=== PATIENT | female | born 1965 | race Caucasian/White ===

== ENCOUNTER 2017-06-21 13:06 | Emergency (ER) | payer MEDICARE ==
[~2017-06-21] VITALS: Ht 162.6 cm; Wt 70.0 kg
[~2017-06-21 13:06] MED LIST: ADVA250A INH; ALBU.5I NEB; BIAX500T PO; BUSP10TA PO; DIFL200T PO; FLUT50SP EACH NARE; IPRASOL INH; MONT10TA2 PO; VENTAER INH
[2017-06-21 13:08] VITALS: BP 185/81; PULSE 127; RESP 18; TEMP 98.1; O2SAT 88
[2017-06-21] MEDS ORDERED: methylPREDNISolone SOD SUCC 125 MG/2 ML VIAL IV PUSH ONE (13:15)
[2017-06-21] MEDS ORDERED: SODIUM CHLORIDE 0.9% FLUSH 10 ML FLUSH IVF PRN (13:15)
--- NOTE | 2017-06-21 13:17 | PD ---
HPI Chief Complaint: Respiratory Distress Time Seen by Provider: 13:09 Travel History International Travel<30 days: No Contact w/Intl Traveler<30days: No Traveled to known affect area: No History of Present Illness HPI 51-year-old female with history of COPD, presents to the ER today for 2 days history of coughing, wheezing, shortness of breath. She denies any fevers or any other issues. However, she states that she thinks she has the flu. She has been using her own inhalers without significant improvement. Modifying Factors: None Associated Signs & Symptoms: Coughing, wheezing, shortness of breath Risk Factors: COPD history PFSH Past Medical History Hx Anticoagulant Therapy: No Arthritis: No Asthma: Yes Autoimmune Disease: No Blood Disorders: No Anxiety: Yes Depression: No Heart Rhythm Problems: No Cancer: No Cardiovascular Problems: Yes High Cholesterol: No Chemotherapy: No Chest Pain: Yes Congestive Heart Failure: No COPD: Yes Cerebrovascular Accident: No Coronary Artery Disease: No Diabetes: No Diminished Hearing: No Endocrine: Yes (hyperthyroid) Gastrointestinal Disorders: No Genitourinary: No Hypertension: Yes Immune Disorder: No Implanted Vascular Access Dvce: No Musculoskeletal: Yes Neurologic: No Psychiatric: Yes (PTSD) Reproductive: Yes (TUBAL LIGATION) Respiratory: Yes (COPD) Immunizations Current: Yes Myocardial Infarction: No Radiation Therapy: No Sleep Apnea: No Thyroid Disease: Yes (HYPERTHYROID) ?: Not Menopausal: Yes : 1 Para: 2 Tubal Ligation: Yes Past Surgical History Abdominal Surgery: Yes ( 1997) Cardiac Surgery: No Section: Yes Ear Surgery: No Endocrine Surgery: No Eye Surgery: No Genitourinary Surgery: No Hysterectomy: No Neurologic Surgery: No Oral Surgery: No Thoracic Surgery: No Other Surgery: Yes (CYST REMOVAL RT BREAST) Social History Alcohol Use: Yes (socially) Tobacco Use: Yes (<1 PPD) Substance Use: No Allergies-Medications (Allergen,Severity, Reaction): Coded Allergies: penicillin G (Unverified Allergy, Severe, RASH, 05/12/17) codeine (Unverified Adverse Reaction, Unknown, NAUSEA, 05/12/17) Reported Meds & Prescriptions Reported Meds & Active Scripts Active Fluticasone Nasal [place] 50 Mcg/Act Naspr 100 Mcg EACH NARE BID 50 mcg/spray Diflucan (Fluconazole) 200 Mg Tab 200 Mg PO DAILY Ventolin Hfa 18 GM Inh (Albuterol Sulfate) 90 Mcg/Act Aer 2 Puff INH Q6H PRN Buspirone (Buspirone HCl) 10 Mg Tab 10 Mg PO BID Duoneb (Ipratropium-Albuterol Neb) 0.5-2.5 Mg/3 Ml Neb 1 Nebule INH Q4HR NEB Advair Diskus Inh (Fluticasone-Salmeterol Inh) 250-50 Mcg/Blist Aer 1 Puff INH BID Rinse mouth after use. Albuterol Neb (Albuterol Sulfate) 2.5 Mg/0.5 Ml Neb 2.5 Mg NEB TID NEB PRN Note: The Albuterol Sulfate Inhalation Solution is concentrated and must be diluted. Read complete instructions carefully before using. Review of Systems Except as stated in HPI: all other systems reviewed are Neg Physical Exam Narrative GENERAL: Well-developed middle age female patient currently in mild respiratory distress. Awake and oriented 3. SKIN: Focused skin assessment warm/dry. HEAD: Atraumatic. Normocephalic. EYES: Pupils equal and round. No scleral icterus. No injection or drainage. ENT: No nasal bleeding or discharge. Mucous membranes pink and moist. NECK: Trachea midline. No JVD. CARDIOVASCULAR: Regular rate and rhythm. No murmur appreciated. RESPIRATORY: Moderate accessory muscle use. Wheezing throughout bilaterally. Breath sounds equal bilaterally. GASTROINTESTINAL: Abdomen soft, non-tender, nondistended. Hepatic and splenic margins not palpable. MUSCULOSKELETAL: No obvious deformities. No clubbing. No cyanosis. No edema. NEUROLOGICAL: Awake and alert. No obvious cranial nerve deficits. Motor grossly within normal limits. Normal speech. PSYCHIATRIC: Appropriate mood and affect; insight and judgment normal. Data Data Last Documented VS Vital Signs Date Time Temp Pulse Resp B/P (MAP) Pulse Ox O2 Delivery O2 Flow Rate FiO2 06/21/17 13:15 129 18 95 Room Air 06/21/17 13:13 2.00 06/21/17 13:08 98.1 185/81 (115) Orders Orders Complete Blood Count With Diff (06/21/17 13:09) Comprehensive Metabolic Panel (06/21/17 13:09) Influenzae A/B Antigen (06/21/17 13:09) Iv Access Insert/Monitor (06/21/17 13:09) Ecg Monitoring (06/21/17 13:09) Oximetry (06/21/17 13:09) Oxygen Administration (06/21/17 13:09) Chest, Single Ap (06/21/17 13:09) Sodium Chloride 0.9% Flush (Ns Flush) (06/21/17 13:15) Methylprednisolone So Succ Inj (Solumedr (06/21/17 13:15) Albuterol-Ipratropium Neb (Duoneb Neb) (06/21/17 13:15) Electrocardiogram (06/21/17 ) Albuterol-Ipratropium Neb (Duoneb Neb) (06/21/17 15:15) Albuterol-Ipratropium Neb (Duoneb Neb) (06/21/17 16:00) Labs Laboratory Tests Test 06/21/17 13:25 White Blood Count 13.7 TH/MM3 Red Blood Count 5.10 MIL/MM3 Hemoglobin 15.0 GM/DL Hematocrit 45.0 % Mean Corpuscular Volume 88.2 FL Mean Corpuscular Hemoglobin 29.3 PG Mean Corpuscular Hemoglobin Concent 33.3 % Red Cell Distribution Width 15.8 % Platelet Count 357 TH/MM3 Mean Platelet Volume 8.3 FL Neutrophils (%) (Auto) 64.8 % Lymphocytes (%) (Auto) 22.0 % Monocytes (%) (Auto) 8.5 % Eosinophils (%) (Auto) 3.1 % Basophils (%) (Auto) 1.6 % Neutrophils # (Auto) 8.9 TH/MM3 Lymphocytes # (Auto) 3.0 TH/MM3 Monocytes # (Auto) 1.2 TH/MM3 Eosinophils # (Auto) 0.4 TH/MM3 Basophils # (Auto) 0.2 TH/MM3 CBC Comment AUTO DIFF Differential Comment AUTO DIFF CONFIRMED Blood Urea Nitrogen 4 MG/DL Creatinine 0.61 MG/DL Random Glucose 154 MG/DL Total Protein 7.5 GM/DL Albumin 3.4 GM/DL Calcium Level 9.5 MG/DL Alkaline Phosphatase 142 U/L Aspartate Amino Transf (AST/SGOT) 25 U/L Alanine Aminotransferase (ALT/SGPT) 31 U/L Total Bilirubin 0.3 MG/DL Sodium Level 136 MEQ/L Potassium Level 3.8 MEQ/L Chloride Level 106 MEQ/L Carbon Dioxide Level 22.3 MEQ/L Anion Gap 8 MEQ/L Estimat Glomerular Filtration Rate 103 ML/MIN [facility] Decision Making Medical Screen Exam Complete: Yes Emergency Medical Condition: Yes Medical Record Reviewed: Yes Interpretation(s) Laboratory Tests Test 06/21/17 13:25 White Blood Count 13.7 TH/MM3 (4.0-11.0) Monocytes (%) (Auto) 8.5 % (0.0-8.0) Neutrophils # (Auto) 8.9 TH/MM3 (1.8-7.7) Monocytes # (Auto) 1.2 TH/MM3 (0-0.9) Blood Urea Nitrogen 4 MG/DL (7-18) Random Glucose 154 MG/DL (74-106) Alkaline Phosphatase 142 U/L (45-117) Last 24 hours Impressions Chest X-Ray 06/21/17 1309 Signed Impressions: Service Date/Time: Wednesday, June 21, 2017 13:54 - CONCLUSION: No acute disease. Adarsh Hutchins MD Differential Diagnosis COPD exacerbation versus bronchitis versus pneumonia Narrative Course Chest x-ray did not show any signs of acute processes. Patient was given Solu- Medrol and several doses of DuoNeb's in the ER with improvement symptoms. At this point, my plan would be to release the patient with follow-up to primary care physician. Return for worsening in symptoms as necessary. The plan has been discussed with her and she states understanding. Diagnosis Primary Impression: COPD with acute exacerbation Med/Other Pt SpecificInfo: Prescription(s) given Scripts Prednisone (Prednisone) 50 Mg Tab 50 MG PO DAILY, #5 TAB 0 Refills Prov: Mahnaz Lipscomb MD 06/21/17 Clarithromycin (Biaxin) 500 Mg Tab 500 MG PO BID for Infection, #14 TAB 0 Refills Prov: Mahnaz Lipscomb MD 06/21/17 Albuterol 18 GM Inh (Ventolin Hfa 18 GM Inh) 90 Mcg/Act Aer 2 PUFF INH Q6H Y for SHORTNESS OF BREATH, #1 INHALER 0 Refills Prov: Mahnaz Lipscomb MD 06/21/17 Disposition: 01 DISCHARGE HOME Condition: Stable Mahnaz Lipscomb MD Jun 21, 2017 13:17
[2017-06-21 13:41] LABS: AUTOMATED NEUTROPHIL # 8.9 TH/MM3 (1.8-7.7); BASOPHIL # 0.2 TH/MM3 (0-0.2); BASOPHIL % 1.6 % (0.0-2.0); EOSINOPHIL # 0.4 TH/MM3 (0-0.4); EOSINOPHIL % 3.1 % (0.0-4.0); MEAN CELL VOLUME 88.2 FL (80.0-100.0); MEAN CORPUSCULAR HEMOGLOBIN 29.3 PG (27.0-34.0); MEAN CORPUSCULAR HGB CONC 33.3 % (32.0-36.0); MONO % 8.5 % (0.0-8.0); NEUT % 64.8 % (16.0-70.0); PLATELET COUNT 357 TH/MM3 (150-450); RED CELL DISTRIBUTION WIDTH 15.8 % (11.6-17.2); WHITE BLOOD COUNT 13.7 TH/MM3 (4.0-11.0)
[2017-06-21 13:47] LABS: HEMO FLAGS AUTO DIFF
[2017-06-21 13:58] LABS: ALT (GPT) 31 U/L (10-53)
[2017-06-21 14:00] LABS: ALKALINE PHOSPHATASE 142 U/L (45-117); TOTAL BILIRUBIN ADULT 0.3 MG/DL (0.2-1.0)
[2017-06-21] MEDS: RESP: ALBUTEROL 2.5 MG/IPRATROPIUM 0.5 MG NEB (SCH) INH ×3 (14:01→16:01)
[2017-06-21 14:03] LABS: ANION GAP 8 MEQ/L (5-15); AST (GOT) 25 U/L (15-37); BICARBONATE 22.3 MEQ/L (21.0-32.0); BLOOD UREA NITROGEN 4 MG/DL (7-18); CHLORIDE 106 MEQ/L (98-107); GLOMERULAR FILTRATION RATE 103 ML/MIN (>89); POTASSIUM 3.8 MEQ/L (3.5-5.1); SODIUM (NA) 136 MEQ/L (136-145)
[2017-06-21 14:17] LABS: SCAN/DIFF AUTO DIFF CONFIRMED
--- NOTE | 2017-06-21 14:19 | RADRPT ---
EXAM DATE/TIME: 06/21/2017 13:54 [facility] COMPARISON: CHEST SINGLE AP, August 22, 2016, 6:20. INDICATIONS : Short of Breath MEDICAL HISTORY : Chronic obstructive pulmonary disease. SURGICAL HISTORY : None. ENCOUNTER: Initial ACUITY: 1 day PAIN SCORE: 0/10 LOCATION: Bilateral chest FINDINGS: A single view of the chest demonstrates the lungs to be symmetrically aerated without evidence of mas s, infiltrate or effusion. The cardiomediastinal contours are unremarkable. Osseous structures are intact. There are multiple overlying electrocardiogram leads and oxygen tubing. CONCLUSION: No acute disease. Adarsh Hutchins MD on June 21, 2017 at 14:18 Board Certified Radiologist. This report was verified electronically.
[2017-06-21] MEDS ORDERED: RESP: ALBUTEROL 2.5 MG/IPRATROPIUM 0.5 MG NEB (SCH) INH ONE (16:00)
[2017-06-21] MEDS ORDERED: PRED50 PO ×2 (16:34→16:47)
[2017-06-21] MEDS ORDERED: BIAX500T PO ×2 (16:34→16:47)
[2017-06-21] MEDS ORDERED: VENTAER INH ×2 (16:34→16:47)
--- NOTE | 2017-06-22 16:10 | EKG ---
Date Performed: 06/21/2017 Time Performed: 13:20:14 PTAGE: 51 years EKG: SINUS TACHYCARDIA WITH RAPID VENTRICULAR RESPONSE. POSSIBLE INFERIOR INFARCT-AGE UNDETERMIN ED. Largely unchanged from prior tracing. ABNORMAL RHYTHM ECG PREVIOUS TRACING : 07/05/2016 22.10 DOCTOR: Jace Desir Interpretating Date/Time 06/22/2017 16:08:43
== END 2017-06-21 17:16 | disposition home or self-care (01) ==
LOC: NEPC 13:06
DX: J44.1 Chronic obstructive pulmonary disease with (acute) exacerbation (principal)
CPT/HCPCS: 71010; 80053; 85025; 87804; 93005; 94640; 94664; 96374; 99285; J2930

== ENCOUNTER 2017-06-22 12:40 | Inpatient (IN) | payer MEDICARE ==
[2017-06-22] VITALS (8 sets, daily range): BP systolic 115–141; BP diastolic 75–91; PULSE 120–129; RESP 16–25; TEMP 96.4–98.6; O2SAT 91–100
[~2017-06-22] VITALS: Ht 162.6 cm; Wt 61.4 kg
[~2017-06-22 12:40] MED LIST changes: -MONT10TA2 PO; +PRED50 PO
[2017-06-22] MEDS ORDERED: LORazepam 2 MG/ML VIAL IV PUSH ONE (13:15)
[2017-06-22] MEDS ORDERED: SODIUM CHLORIDE 0.9% FLUSH 10 ML FLUSH IVF PRN (13:15)
[2017-06-22] MEDS ORDERED: SODIUM CHLOR 0.9% 1000 ML INJ 1,000 ML IV ONE (13:15)
[2017-06-22] MEDS: RESP: ALBUTEROL 2.5 MG/IPRATROPIUM 0.5 MG NEB (SCH) INH ×2 (13:19→13:20)
--- NOTE | 2017-06-22 13:43 | PD ---
HPI Chief Complaint: Respiratory Symptoms Time Seen by Provider: 12:57 Travel History International Travel<30 days: No Contact w/Intl Traveler<30days: No Traveled to known affect area: No History of Present Illness HPI 51 yo F, hx COPD, c/o dyspnea and wheezing, severity moderate, timing constant. No CP. Nebs were given at [facility] with good effect. Pt went home with prednisone script, currently waiting at [facility]. No fever. Pt reports moderate to severe anxiety lately, marginally improved with Suboxone. No HI/SI. PFSH Past Medical History Hx Anticoagulant Therapy: No Arthritis: No Asthma: Yes Autoimmune Disease: No Blood Disorders: No Anxiety: Yes Depression: No Heart Rhythm Problems: No Cancer: No Cardiovascular Problems: Yes (TACHYCARDIA) High Cholesterol: No Chemotherapy: No Chest Pain: Yes Congestive Heart Failure: No COPD: Yes Cerebrovascular Accident: No Coronary Artery Disease: No Diabetes: No Diminished Hearing: No Endocrine: Yes (hyperthyroid) Gastrointestinal Disorders: No Genitourinary: No Hypertension: Yes Immune Disorder: No Implanted Vascular Access Dvce: No Musculoskeletal: Yes Neurologic: No Psychiatric: Yes (PTSD) Reproductive: Yes (TUBAL LIGATION) Respiratory: Yes (COPD) Immunizations Current: Yes Myocardial Infarction: No Radiation Therapy: No Sleep Apnea: No Thyroid Disease: Yes (HYPERTHYROID) Tetanus Vaccination: Unknown ?: Not Menopausal: Yes : 1 Para: 2 Tubal Ligation: Yes Past Surgical History Abdominal Surgery: Yes ( 1997) Cardiac Surgery: No Section: Yes Ear Surgery: No Endocrine Surgery: No Eye Surgery: No Genitourinary Surgery: No Hysterectomy: No Neurologic Surgery: No Oral Surgery: No Thoracic Surgery: No Other Surgery: Yes (CYST REMOVAL RT BREAST) Social History Alcohol Use: Yes (socially) Tobacco Use: Yes (<1 PPD) Substance Use: No Allergies-Medications (Allergen,Severity, Reaction): Coded Allergies: penicillin G (Unverified Allergy, Severe, RASH, 06/22/17) codeine (Unverified Adverse Reaction, Unknown, NAUSEA, 06/22/17) Reported Meds & Prescriptions Reported Meds & Active Scripts Active Prednisone 50 Mg Tab 50 Mg PO DAILY Ventolin Hfa 18 GM Inh (Albuterol Sulfate) 90 Mcg/Act Aer 2 Puff INH Q6H PRN Fluticasone Nasal [place] 50 Mcg/Act Naspr 100 Mcg EACH NARE BID 50 mcg/spray Diflucan (Fluconazole) 200 Mg Tab 200 Mg PO DAILY Buspirone (Buspirone HCl) 10 Mg Tab 10 Mg PO BID Duoneb (Ipratropium-Albuterol Neb) 0.5-2.5 Mg/3 Ml Neb 1 Nebule INH Q4HR NEB Advair Diskus Inh (Fluticasone-Salmeterol Inh) 250-50 Mcg/Blist Aer 1 Puff INH BID Rinse mouth after use. Review of Systems Except as stated in HPI: all other systems reviewed are Neg General / Constitutional: No: Fever Respiratory: Positive: Cough, Shortness of Breath, Wheezing Physical Exam Narrative GENERAL: 51 yo M, mild conversational dyspnea, WNWD SKIN: Warm and dry. HEAD: Atraumatic. Normocephalic. EYES: Pupils equal and round. No scleral icterus. No injection or drainage. ENT: No nasal bleeding or discharge. Mucous membranes pink and moist. NECK: Trachea midline. No JVD. CARDIOVASCULAR: Tachycardia. Regular rhythm. RESPIRATORY: Wheezing present bilaterally. Mild tachypnea. GASTROINTESTINAL: Abdomen soft, non-tender, nondistended. Hepatic and splenic margins not palpable. MUSCULOSKELETAL: Extremities without clubbing, cyanosis, or edema. No obvious deformities. NEUROLOGICAL: Awake and alert. No obvious cranial nerve deficits. Motor grossly within normal limits. Five out of 5 muscle strength in the arms and legs. Normal speech. PSYCHIATRIC: Appropriate mood and affect; insight and judgment normal. Data Data Last Documented VS Vital Signs Date Time Temp Pulse Resp B/P (MAP) Pulse Ox O2 Delivery O2 Flow Rate FiO2 06/22/17 14:09 120 18 138/85 (102) 100 Nasal Cannula 1.00 06/22/17 13:47 21 06/22/17 12:49 98.0 VS reviewed Orders Orders Iv Access Insert/Monitor (06/22/17 13:05) Ecg Monitoring (06/22/17 13:05) Oximetry (06/22/17 13:05) Oxygen Administration (06/22/17 13:05) Sodium Chloride 0.9% Flush (Ns Flush) (06/22/17 13:15) Albuterol-Ipratropium Neb (Duoneb Neb) (06/22/17 13:15) Lorazepam Inj (Ativan Inj) (06/22/17 13:15) Sodium Chlor 0.9% 1000 Ml Inj (Ns 1000 M (06/22/17 13:15) Admit Order (Ed Use Only) (06/22/17 15:06) [facility] Medical Decision Making Medical Screen Exam Complete: Yes Emergency Medical Condition: Yes Medical Record Reviewed: Yes Differential Diagnosis COPD exacerbation, PNA, anxiety, anemia, renal failure, electrolyte imbalance Narrative Course WBC 13.7 Hgb 15.1 Plt 357 BMP normal CXR: NACPD Pt received three rounds duoneb and 1L NS. 1mg ativan also given which patient states helped significantly. Ambulation around pod resulted in O2 sat of 84 on RA. HR increased to 130 sinus. No CP. Admission for COPD exacerbation with hypoxia. d/w Dr Martinez Diagnosis Primary Impression: COPD with acute exacerbation Additional Impression: Hypoxemia Admitting Information Admitting Physician Requests: Bear Plummer MD Jun 22, 2017 13:43
[2017-06-22] MEDS ORDERED: NALOXONE HCL 0.4 MG/ML AMP IV PUSH PRN (17:30)
[2017-06-22] MEDS ORDERED: ONDANSETRON HCL 4 MG/2 ML VIAL IVP PRN (17:30)
[2017-06-22] MEDS ORDERED: ACETAMINOPHEN 325 MG TAB PO PRN (17:30)
--- NOTE | 2017-06-22 17:36 | HHI.HP ---
[facility] Primary Care Physician No Primary Care Physician Admission Diagnosis Hypoxemia; COPD Exacerbation Diagnoses: Chief Complaint: Shortness of breath Travel History International Travel<30 Days: No Contact w/Intl Traveler <30 Da: No Traveled to Known Affected Are: No History of Present Illness This patient is a 51-year-old female with a known history of COPD. She had increased work of breathing and dyspnea on exertion for the last week. She went to the emergency room yesterday and had some nebulizers and went home with oral prednisone. She came back to the emergency room today with increased work of breathing. She notes no fever. She reports she had a recent viral infection and noted that her breathing got worse. She was hypoxemic with 91% on room air and she has been quite tachypneic and tachycardic. Patient been admitted to the hospital for further evaluation. Review of Systems Constitutional: DENIES: Diaphoretic episodes, Fatigue, Fever, Weight gain, Weight loss, Chills, Dizziness, Change in appetite, Night Sweats Endocrine: DENIES: Abnorml menstrual pattern, Heat/cold intolerance, Polydipsia , Polyuria, Polyphagia Eyes: DENIES: Blurred vision, Diplopia, Eye inflammation, Eye pain, Vision loss , Photosensitivity, Double Vision Ears, nose, mouth, throat: DENIES: Tinnitus, Hearing loss, Vertigo, Nasal discharge, Oral lesions, Throat pain, Hoarseness, Ear Pain, Running Nose, Epistaxis, Sinus Pain, Toothache, Odynophagia Respiratory: COMPLAINS OF: Shortness of breath, DENIES: Apneas, Cough, Snoring , Wheezing, Hemoptysis, Sputum production Cardiovascular: COMPLAINS OF: Dyspnea on Exertion, DENIES: Chest pain, Palpitations, Syncope, PND, Lower Extremity Edema, Orthopnea, Claudication Gastrointestinal: DENIES: Abdominal pain, Black stools, Bloody stools, Constipation, Diarrhea, Nausea, Vomiting, Difficulty Swallowing, Anorexia Genitourinary: DENIES: Abnormal vaginal bleeding, Dysmenorrhea, Dyspareunia, Sexual dysfunction, Urinary frequency, Urinary incontinence, Urgency, Hematuria , Dysuria, Nocturia, Vaginal discharge Musculoskeletal: DENIES: Joint pain, Muscle aches, Stiffness, Joint Swelling, Back pain, Neck pain Integumentary: DENIES: Abnormal pigmentation, Pruritus, Rash, Nail changes, Breast masses, Breast skin changes, Nipple discharge Immunologic/allergic: DENIES: Eczema, Urticaria Neurologic: DENIES: Abnormal gait, Headache, Localized weakness, Paresthesias, Seizures, Speech Problems, Tremor, Poor Balance Psychiatric: COMPLAINS OF: Anxiety, DENIES: Confusion, Mood changes, Depression , Hallucinations, Agitation, Suicidal Ideation, Homicidal Ideation, Delusions Except as stated in HPI: all other systems reviewed are Neg Past Family Social History Past Medical History COPD Anxiety Thyroid disorder Past Surgical History , tubal Reported Medications Reviewed in the medical record, no O2 at home Allergies: Coded Allergies: penicillin G (Unverified Allergy, Severe, RASH, 06/22/17) codeine (Unverified Adverse Reaction, Unknown, NAUSEA, 06/22/17) Active Ordered Medications Reviewed in the medical record Family History Hypertension, diabetes Social History Patient smokes at least a pack a day for the last 35 years No alcohol dependency Lives independently Physical Exam Vital Signs Vital Signs Date Time Temp Pulse Resp B/P (MAP) Pulse Ox O2 Delivery O2 Flow Rate FiO2 06/22/17 16:40 06/22/17 15:30 124 18 115/77 (90) 97 Nasal Cannula 3.00 06/22/17 14:09 120 18 138/85 (102) 100 Nasal Cannula 1.00 06/22/17 13:47 96 21 06/22/17 13:13 98 Nasal Cannula 1.00 06/22/17 13:13 98 06/22/17 13:13 98 Nasal Cannula 1.00 06/22/17 12:49 98.0 128 16 133/80 (97) 91 Physical Exam GENERAL: This is a well-nourished, well-developed patient, anxious. SKIN: No rashes, ecchymoses or lesions. Cool and dry. HEAD: Atraumatic. Normocephalic. No temporal or scalp tenderness. EYES: Pupils equal round and reactive. Extraocular motions intact. No scleral icterus. No injection or drainage. ENT: Nose without bleeding, purulent drainage or septal hematoma. Throat without erythema, tonsillar hypertrophy or exudate. Uvula midline. Airway patent. NECK: Trachea midline. No JVD or lymphadenopathy. Supple, nontender, no meningeal signs. CARDIOVASCULAR: Sinus tachycardia without murmurs, gallops, or rubs. RESPIRATORY: Decreased air flow bilaterally without wheezes are rhonchi GASTROINTESTINAL: Abdomen soft, non-tender, nondistended. No hepato-splenomegaly , or palpable masses. No guarding. MUSCULOSKELETAL: Extremities without clubbing, cyanosis, or edema. No joint tenderness, effusion, or edema noted. No calf tenderness. Negative Homans sign bilaterally. NEUROLOGICAL: Awake and alert. Cranial nerves II through XII intact. Motor and sensory grossly within normal limits. Five out of 5 muscle strength in all muscle groups. Normal speech. Imaging Chest x-ray on my review shows no acute cardiopulmonary disease 06/21 Caprini VTE Risk Assessment Caprini VTE Risk Assessment: Mod/High Risk (score >= 2) Caprini Risk Assessment Model Point Value = 1 Point Value = 2 Point Value = 3 Point Value = 5 Age 41-60 Minor surgery BMI > 25 kg/m2 Swollen legs Varicose veins or History of unexplained or recurrent spontaneous Oral contraceptives or hormone replacement Sepsis (< 1 month) Serious lung disease, including pneumonia (< 1 month) Abnormal pulmonary function Acute myocardial infarction Congestive heart failure (< 1 month) History of inflammatory bowel disease Medical patient at bed rest Age 61-74 Arthroscopic surgery Major open surgery (> 45 min) Laparoscopic surgery (> 45 min) Malignancy Confined to bed (> 72 hours) Immobilizing plaster cast Central venous access Age >= 75 History of VTE Family history of VTE Factor V Leiden Prothrombin [id number] Lupus anticoagulant Anticardiolipin antibodies Elevated serum homocysteine Heparin-induced thrombocytopenia Other congenital or acquired thrombophilia Stroke (< 1 month) Elective arthroplasty Hip, pelvis, or leg fracture Acute spinal cord injury (< 1 month) Prophylaxis Regimen Total Risk Factor Score Risk Level Prophylaxis Regimen 0-1 Low Early ambulation 2 Moderate Order ONE of the following: *Sequential Compression Device (SCD) *Heparin 5000 units SQ BID 3-4 Higher Order ONE of the following medications: *Heparin 5000 units SQ TID *Enoxaparin/Lovenox 40 mg SQ daily (WT < 150 kg, CrCl > 30 mL/min) *Enoxaparin/Lovenox 30 mg SQ daily (WT < 150 kg, CrCl > 10-29 mL/min) *Enoxaparin/Lovenox 30 mg SQ BID (WT < 150 kg, CrCl > 30 mL/min) AND/OR *Sequential Compression Device (SCD) 5 or more Highest Order ONE of the following medications: *Heparin 5000 units SQ TID (Preferred with Epidurals) *Enoxaparin/Lovenox 40 mg SQ daily (WT < 150 kg, CrCl > 30 mL/min) *Enoxaparin/Lovenox 30 mg SQ daily (WT < 150 kg, CrCl > 10-29 mL/min) *Enoxaparin/Lovenox 30 mg SQ BID (WT < 150 kg, CrCl > 30 mL/min) AND *Sequential Compression Device (SCD) Assessment and Plan Problem List: (1) COPD exacerbation ICD Code: J44.1 - Chronic obstructive pulmonary disease with (acute) exacerbation Status: Acute Plan: Continue bronchodilators, IV steroids, O2 as needed DC tobacco follow up echo (2) Tobacco abuse ICD Code: Z72.0 - Tobacco abuse Status: Chronic Plan: Patient counseled to discontinue tobacco (3) Tachycardia ICD Code: R00.0 - Tachycardia Status: Acute Plan: Likely from anxiety versus, bronchodilation. Continue on telemetry and follow Permanent Comment: Sinus Last Edited By: Joseluis Mancilla on Aug 19, 2013 11:25 (4) Anxiety ICD Code: F41.9 - Anxiety Status: Chronic Plan: Xanax as needed Code Status full code Discussed Condition With Patient, RAE May Physician Certification 2 Midnight Certification Type: Admission for Inpatient Services Order for Inpatient Services The services are ordered in accordance with Medicare regulations or non- Medicare payer requirements, as applicable. In the case of services not specified as inpatient-only, they are appropriately provided as inpatient services in accordance with the 2-midnight benchmark. Estimated LOS (days): 3 3 days is the estimated time the patient will need to remain in the hospital, assuming treatment plan goals are met and no additional complications. Post-Hospital Plan: Luli Hobson MD Jun 22, 2017 17:36
[2017-06-22 17:53] LABS: BLOOD GAS BASE EXCESS -0.6 mmol/L (-2-2); BLOOD GAS CARBOXYHEMOGLOBIN 2.2 % (0-4); BLOOD GAS HCO3 24 mmol/L (22-26); BLOOD GAS METHEMOGLOBIN 1.2 % (0-2); BLOOD GAS O2 HGB SATURATION 87 % (90-100); BLOOD GAS OXYGEN CONTENT 16.6 Vol % (12.0-20.0); BLOOD GAS PCO2 40 mmHG (38-42); BLOOD GAS PO2 61 mmHG (61-120); BLOOD GAS TOTAL HGB 13.7 G/DL (12.0-16.0); TEMP CORR TO 98.6
[2017-06-22 17:59] LABS: CRITICAL VALUE YES
[2017-06-22 18:00] LABS: DRAW SITE LT RADIAL; FIO2 21 %; NUMBER OF ARTERIAL PUNCTURES 1; STAT YES; ULNAR PULSE PRESENT
[2017-06-22] MEDS: ALPRAZolam 0.5 MG TAB PO PRN (18:22)
[2017-06-22] MEDS: ENOXAPARIN SODIUM 40 MG/0.4 ML SYRINGE SQ SCH (18:22)
[2017-06-22] MEDS: methylPREDNISolone SOD SUCC 40 MG/1 ML VIAL IV PUSH SCH (18:22)
[2017-06-22] MEDS: RESP: ALBUTEROL 2.5 MG/IPRATROPIUM 0.5 MG NEB (SCH) NEB (19:25)
[2017-06-22] MEDS: busPIRone HCL 10 MG TAB PO SCH (20:30)
[2017-06-22] MEDS: BUDESONIDE-FORMOTEROL 160/4.5 MCG INHALER INH SCH (20:56)
[2017-06-22] MEDS: SODIUM CHLORIDE 0.9% FLUSH 10 ML FLUSH IV FLUSH SCH (20:57)
[2017-06-22] MEDS: RESP: ALBUTEROL 2.5 MG/IPRATROPIUM 0.5 MG NEB (PRN) NEB (23:18)
[2017-06-23] VITALS (16 sets, daily range): BP systolic 108–146; BP diastolic 62–91; PULSE 90–126; RESP 15–42; TEMP 96.5–98; O2SAT 90–97
[2017-06-23] MEDS ORDERED: guaiFENesin/DEXTROMETHORPHAN 200 MG/20 MG/10 ML CUP PO ONE (02:00)
[2017-06-23] MEDS: SODIUM CHLORIDE 0.9% FLUSH 10 ML FLUSH IV FLUSH PRN (02:24)
[2017-06-23] MEDS: methylPREDNISolone SOD SUCC 40 MG/1 ML VIAL IV PUSH SCH ×3 (02:24→17:51)
[2017-06-23] MEDS: ALPRAZolam 0.5 MG TAB PO PRN ×3 (02:28→22:10)
[2017-06-23] MEDS: RESP: ALBUTEROL 2.5 MG/IPRATROPIUM 0.5 MG NEB (PRN) NEB ×3 (05:29→22:43)
[2017-06-23 06:43] LABS: AUTOMATED NEUTROPHIL # 5.8 TH/MM3 (1.8-7.7); BASOPHIL % 0.4 % (0.0-2.0); EOSINOPHIL % 0.1 % (0.0-4.0); HEMATOCRIT 39.6 % (35.0-46.0); HEMO FLAGS DIFF FINAL; LYMPH % 11.7 % (9.0-44.0); LYMPHOCYTE # 0.8 TH/MM3 (1.0-4.8); MEAN CELL VOLUME 86.2 FL (80.0-100.0); MEAN CORPUSCULAR HEMOGLOBIN 29.1 PG (27.0-34.0); MEAN CORPUSCULAR HGB CONC 33.8 % (32.0-36.0); MONO % 1.4 % (0.0-8.0); NEUT % 86.4 % (16.0-70.0); PLATELET COUNT 323 TH/MM3 (150-450); RED CELL DISTRIBUTION WIDTH 14.6 % (11.6-17.2); WHITE BLOOD COUNT 6.7 TH/MM3 (4.0-11.0)
[2017-06-23 06:55] LABS: POTASSIUM 4.3 MEQ/L (3.5-5.1)
[2017-06-23 07:03] LABS: BICARBONATE 27.1 MEQ/L (21.0-32.0)
[2017-06-23] MEDS: RESP: ALBUTEROL 2.5 MG/IPRATROPIUM 0.5 MG NEB (SCH) NEB ×3 (07:33→20:16)
[2017-06-23] MEDS: SODIUM CHLORIDE 0.9% FLUSH 10 ML FLUSH IV FLUSH SCH ×2 (08:35→20:41)
[2017-06-23] MEDS: busPIRone HCL 10 MG TAB PO SCH ×2 (08:35→20:40)
[2017-06-23] MEDS: BUDESONIDE-FORMOTEROL 160/4.5 MCG INHALER INH SCH ×2 (08:56→20:51)
[2017-06-23 12:20] LABS: FREE T3 4.75 PG/ML (2.18-3.98)
--- NOTE | 2017-06-23 12:46 | HHI.PR ---
Subjective Remarks patient seen and evaluated today in follow-up for COPD exacerbation, doing better with steroids and bronchodilators. TSH is suppressed with elevated T3. Patient admits she has been told she is hyperthyroid in the past Objective Vitals Vital Signs Date Time Temp Pulse Resp B/P (MAP) Pulse Ox O2 Delivery O2 Flow Rate FiO2 06/23/17 12:00 97.2 94 20 108/62 (77) 94 06/23/17 08:45 Nasal Cannula 3.00 06/23/17 08:00 97.1 92 22 126/75 (92) 94 06/23/17 07:35 97 Nasal Cannula 2.00 06/23/17 04:00 96.5 109 16 118/86 (97) 95 06/23/17 00:00 97.1 119 18 114/72 (86) 94 06/22/17 20:00 96.4 129 20 141/91 (108) 94 06/22/17 19:25 93 Nasal Cannula 3.00 06/22/17 19:00 Nasal Cannula 3.00 06/22/17 17:35 94 Nasal Cannula 3.00 06/22/17 17:34 98.6 121 25 120/75 (90) 94 06/22/17 16:40 06/22/17 15:30 124 18 115/77 (90) 97 Nasal Cannula 3.00 06/22/17 14:09 120 18 138/85 (102) 100 Nasal Cannula 1.00 06/22/17 13:47 96 21 06/22/17 13:13 98 Nasal Cannula 1.00 06/22/17 13:13 98 06/22/17 13:13 98 Nasal Cannula 1.00 06/22/17 12:49 98.0 128 16 133/80 (97) 91 I/O 06/22/17 06/22/17 06/22/17 06/23/17 06/23/17 06/23/17 07:00 15:00 23:00 07:00 15:00 23:00 Intake Total 1000 ml Balance 1000 ml Intake IV Total 1000 ml # Voids 1 2 Result Diagram: 06/23/1751606/23/17516 Imaging Chest x-ray 06/21 on my review shows no acute cardiopulmonary disease Objective Remarks GENERAL: This is a well-nourished, well-developed patient, short of breath with minimal exertion, no goiter CARDIOVASCULAR: Regular rate and rhythm without murmurs, gallops, or rubs. RESPIRATORY: Decreased breath sounds bilaterally No wheezes, rales, or rhonchi. GASTROINTESTINAL: Abdomen soft, non-tender, nondistended. Normal active bowel sounds MUSCULOSKELETAL: Extremities without clubbing, cyanosis, or edema. NEURO: Alert & Oriented x4 to person, place, time, situation. Moves all ext x4 A/P Problem List: (1) COPD exacerbation ICD Code: J44.1 - Chronic obstructive pulmonary disease with (acute) exacerbation Status: Acute Plan: Continue bronchodilators, IV steroids, O2 as needed DC tobacco follow up echo (2) Tobacco abuse ICD Code: Z72.0 - Tobacco abuse Status: Chronic Plan: Patient counseled to discontinue tobacco (3) Tachycardia ICD Code: R00.0 - Tachycardia Status: Acute Plan: Likely from anxiety versus, bronchodilation. Improved Likely exacerbated by hyperthyroid disorder Permanent Comment: Sinus Last Edited By: Joseluis Mancilla on Aug 19, 2013 11:25 (4) Anxiety ICD Code: F41.9 - Anxiety Status: Chronic Plan: Xanax as needed Continue buspirone Treat thyroid disorder (5) Hyperthyroidism ICD Code: E05.90 - Thyrotoxicosis, unspecified without thyrotoxic crisis or storm Plan: methimazole 5mg daily Discharge Planning 1- 2 days pending progress Likely will need O2 at discharge Luli Martinez MD Jun 23, 2017 12:46
--- NOTE | 2017-06-23 12:54 | ECHRPT ---
Indication: SHORTNESS OF BREATH CONCLUSIONS Normal left ventricular size. Wall thickness is normal. The left ventricular systolic function is normal with an estimated ejection fraction in the range of 55-60%. The right ventricular size is normal. The left atrial size is upper limits of normal. The right atrial size is mildly dilated. No atrial level shunt is demonstrated by color flow Doppler interrogation. There is trace tricuspid valve regurgitation. There is estimated mild pulmonary hypertension present (range 40-50 mmHg). The pulmonary valve is not well visualized. The inferior vena cava is dilated. There is greater than 50% respiratory change in dimension of the inferior vena cava (normal). BP: 126 / 72 HR: 92 Rhythm: Sinus MEASUREMENTS (Male / Female) Normal Values Technical Quality:Technically difficult study 2D ECHO LV Diastolic Diameter PLAX 4.3 cm 4.2 - 5.9 / 3.9 - 5.3 cm LV Systolic Diameter PLAX 3.3 cm IVS Diastolic Thickness 0.9 cm 0.6 - 1.0 / 0.6 - 0.9 cm LVPW Diastolic Thickness 0.9 cm 0.6 - 1.0 / 0.6 - 0.9 cm LV Relative Wall Thickness 0.4 LVOT Diameter 2.1 cm Aortic Root Diameter 2.8 cm LA Systolic Diameter LX 2.4 cm 3.0 - 4.0 / 2.7 - 3.8 cm DOPPLER AV Peak Velocity 170.0 cm/s AV Peak Gradient 11.6 mmHg AV Mean Gradient 7.0 mmHg AV Velocity Time Integral 26.7 cm LVOT Peak Velocity 82.0 cm/s LVOT Peak Gradient 2.7 mmHg LVOT Velocity Time Integral 13.1 cm LVOT Cardiac Index 2443.2 cm/minm AV Area Cont Eq vti 1.7 cm AV Area Cont Eq pk 1.7 cm Mitral E Point Velocity 66.6 cm/s Mitral A Point Velocity 35.5 cm/s Mitral E to A Ratio 1.9 LV E' Lateral Velocity 5.8 cm/s Mitral E to LV E' Lateral Ratio 11.6 LV E' Septal Velocity 8.5 cm/s Mitral E to LV E' Septal Ratio 7.9 TR Peak Velocity 274.0 cm/s TR Peak Gradient 30.0 mmHg Right Atrial Pressure 10.0 mmHg Pulmonary Artery Systolic Pressu 40.0 mmHg Right Ventricular Systolic Press 40.0 mmHg PV Peak Velocity 115.0 cm/s PV Peak Gradient 5.3 mmHg FINDINGS LEFT VENTRICLE Normal left ventricular size. Wall thickness is normal. The left ventricular systolic function is normal with an estimated ejection fraction in the range of 55-60%. Left ventricular diastolic function parameters are normal. RIGHT VENTRICLE The right ventricular size is normal. LEFT ATRIUM The left atrial size is upper limits of normal. RIGHT ATRIUM The right atrial size is mildly dilated. ATRIAL SEPTUM No atrial level shunt is demonstrated by color flow Doppler interrogation. AORTA The aortic root and proximal ascending aorta are normal in size on limited imaging. MITRAL VALVE Structurally normal mitral valve. No mitral valve stenosis or regurgitation. AORTIC VALVE Trileaflet aortic valve. No aortic valve stenosis or regurgitation. TRICUSPID VALVE Structurally normal tricuspid valve. There is trace tricuspid valve regurgitation. There is estimated mild pulmonary hypertension present (range 40-50 mmHg). PULMONARY VALVE The pulmonary valve is not well visualized. VESSELS The inferior vena cava is dilated. There is greater than 50% respiratory change in dimension of the inferior vena cava (normal). PERICARDIUM No pericardial effusion. Matthew Laughlin MD, FACC (Electronically Signed) Final Date:23 June 2017 12:53
[2017-06-23] MEDS ORDERED: NEBULIZER1 MI1 (12:58)
[2017-06-23] MEDS: METHIMAZOLE 5 MG TAB PO SCH (14:06)
[2017-06-23] MEDS: ENOXAPARIN SODIUM 40 MG/0.4 ML SYRINGE SQ SCH (17:51)
[2017-06-23 17:57] LABS: BLOOD GAS BASE EXCESS 2.5 mmol/L (-2-2); BLOOD GAS CARBOXYHEMOGLOBIN 1.2 % (0-4); BLOOD GAS HCO3 27 mmol/L (22-26); BLOOD GAS METHEMOGLOBIN 1.2 % (0-2); BLOOD GAS O2 HGB SATURATION 91 % (90-100); BLOOD GAS OXYGEN CONTENT 17.5 Vol % (12.0-20.0); BLOOD GAS PCO2 46 mmHg (38-42); BLOOD GAS PO2 69 mmHg (61-120); BLOOD GAS TOTAL HGB 13.6 G/DL (12.0-16.0); CRITICAL VALUE NO
[2017-06-23 17:58] LABS: DRAW SITE LT RADIAL; LITER FLOW 3 L/M; NUMBER OF ARTERIAL PUNCTURES 1; OXYGEN DEVICE NASAL CANNULA; STAT YES; ULNAR PULSE PRESENT
--- NOTE | 2017-06-23 18:10 | RADRPT ---
EXAM DATE/TIME: 06/23/2017 17:58 [facility] COMPARISON: CHEST SINGLE AP, June 21, 2017, 13:54. INDICATIONS : Difficulty breathing and short of breath. MEDICAL HISTORY : Chronic obstructive pulmonary disease. Asthma. SURGICAL HISTORY : None. ENCOUNTER: Subsequent ACUITY: 1 day PAIN SCORE: 0/10 LOCATION: Bilateral chest FINDINGS: A single view of the chest demonstrates the lungs to be symmetrically aerated without evidence of mas s, infiltrate or effusion. The cardiomediastinal contours are unremarkable. Osseous structures are intact. CONCLUSION: No evidence of acute cardiopulmonary disease. Boogie Ross MD on June 23, 2017 at 18:08 Board Certified Radiologist. This report was verified electronically.
[2017-06-23] MEDS ORDERED: CHLORHEXIDINE GLUCONATE 2 % 1 PACK (2 CLOTHS)(extra cloths) TOPICAL PRN (18:15)
[2017-06-23] MEDS: BENZONATATE 100 MG CAP PO PRN (18:47)
[2017-06-23] MEDS: RESP: ACETYLCYSTEINE 20% 30 ML NEB NEB SCH ×2 (20:17→22:43)
[2017-06-24] VITALS (26 sets, daily range): BP systolic 93–132; BP diastolic 56–82; PULSE 96–116; RESP 13–28; TEMP 97.7–98.6; O2SAT 92–96
[2017-06-24] MEDS: SODIUM CHLORIDE 0.9% FLUSH 10 ML FLUSH IV FLUSH PRN (02:34)
[2017-06-24] MEDS: methylPREDNISolone SOD SUCC 40 MG/1 ML VIAL IV PUSH SCH ×3 (02:34→19:26)
[2017-06-24] MEDS: CHLORHEXIDINE GLUCONATE 2 % 1 PACK (2 CLOTHS)(taper/protocol) TOPICAL SCH (05:30)
[2017-06-24] MEDS: ALPRAZolam 0.5 MG TAB PO PRN ×2 (05:37→17:06)
[2017-06-24] MEDS: RESP: ALBUTEROL 2.5 MG/IPRATROPIUM 0.5 MG NEB (PRN) NEB (05:40)
[2017-06-24] MEDS: RESP: ALBUTEROL 2.5 MG/IPRATROPIUM 0.5 MG NEB (SCH) NEB ×3 (08:03→19:29)
[2017-06-24] MEDS: METHIMAZOLE 5 MG TAB PO SCH (08:56)
[2017-06-24] MEDS: busPIRone HCL 10 MG TAB PO SCH ×2 (08:56→22:09)
[2017-06-24] MEDS: SODIUM CHLORIDE 0.9% FLUSH 10 ML FLUSH IV FLUSH SCH ×2 (08:56→19:24)
[2017-06-24] MEDS: BUDESONIDE-FORMOTEROL 160/4.5 MCG INHALER INH SCH ×2 (08:57→19:27)
[2017-06-24] MEDS: BENZONATATE 100 MG CAP PO PRN ×3 (09:03→22:11)
--- NOTE | 2017-06-24 14:15 | HHI.PR ---
Subjective Remarks Still with sob and feels tired.O2 is dropping with movement, on 2.5L NC at this time. Still wheezing. Less cough. + Chills. No n/v/d/c. Can't eat much. Objective Vitals Vital Signs Date Time Temp Pulse Resp B/P (MAP) Pulse Ox O2 Delivery O2 Flow Rate FiO2 06/24/17 13:00 110 19 120/82 (95) 93 06/24/17 12:00 98.3 108 20 99/69 (79) 93 06/24/17 12:00 93 Nasal Cannula 4.00 06/24/17 11:00 116 25 126/71 (89) 93 06/24/17 10:00 114 24 119/70 (86) 92 06/24/17 09:00 106 28 117/76 (90) 92 06/24/17 08:04 94 Nasal Cannula 2.50 06/24/17 08:00 91 Nasal Cannula 3.00 06/24/17 08:00 98.1 102 22 109/75 (86) 95 06/24/17 07:00 104 14 123/76 (92) 94 06/24/17 07:00 104 06/24/17 06:00 102 16 113/77 (89) 92 06/24/17 05:00 102 18 105/70 (82) 96 06/24/17 04:00 98.0 96 13 110/65 (80) 95 06/24/17 03:00 100 14 98/71 (80) 94 06/24/17 02:00 102 14 93/68 (76) 96 06/24/17 01:00 104 14 114/67 (83) 95 06/24/17 00:00 97.7 110 15 95/69 (78) 95 06/23/17 23:00 116 06/23/17 23:00 116 22 123/91 (102) 92 06/23/17 22:45 Nasal Cannula 4.00 06/23/17 22:00 108 15 116/66 (83) 94 06/23/17 22:00 108 06/23/17 21:00 118 20 137/82 (100) 94 06/23/17 20:15 96 Nasal Cannula 3.00 06/23/17 20:00 98.0 112 37 124/76 (92) 96 06/23/17 20:00 117 06/23/17 20:00 92 Nasal Cannula 3.00 06/23/17 19:00 118 36 130/73 (92) 91 06/23/17 19:00 90 Nasal Cannula 2.00 06/23/17 18:12 120 42 111/83 (92) 92 06/23/17 17:57 97.5 126 36 146/89 (108) 90 06/23/17 17:07 93 Nasal Cannula 3.00 06/23/17 16:00 97.1 90 20 110/70 (83) 94 I/O 06/23/17 06/23/17 06/23/17 06/24/17 06/24/17 06/24/17 07:00 15:00 23:00 07:00 15:00 23:00 Intake Total 120 ml Output Total 0 ml 400 ml Balance 0 ml -280 ml Intake Oral 120 ml Output Urine Total 0 ml 400 ml # Voids 2 # Bowel Movements 0 0 Result Diagram: 06/23/1751606/23/17 05 Imaging Last Impressions Chest X-Ray 06/23/17 0000 Signed Impressions: Service Date/Time: Friday, June 23, 2017 17:58 - CONCLUSION: No evidence of acute cardiopulmonary disease. Boogie Ross MD Objective Remarks GENERAL: This is a well-nourished, well-developed patient, short of breath with minimal exertion, no goiter CARDIOVASCULAR: Regular rate and rhythm without murmurs, gallops, or rubs. RESPIRATORY: Decreased breath sounds bilaterally No wheezes, rales, or rhonchi. GASTROINTESTINAL: Abdomen soft, non-tender, nondistended. Normal active bowel sounds MUSCULOSKELETAL: Extremities without clubbing, cyanosis, or edema. NEURO: Alert & Oriented x4 to person, place, time, situation. Moves all ext x4 A/P Problem List: (1) COPD exacerbation ICD Code: J44.1 - Chronic obstructive pulmonary disease with (acute) exacerbation Status: Acute (2) Tobacco abuse ICD Code: Z72.0 - Tobacco abuse Status: Chronic (3) Tachycardia ICD Code: R00.0 - Tachycardia Status: Acute Permanent Comment: Sinus Last Edited By: Joseluis Mancilla on Aug 19, 2013 11:25 (4) Anxiety ICD Code: F41.9 - Anxiety Status: Chronic (5) Hyperthyroidism ICD Code: E05.90 - Thyrotoxicosis, unspecified without thyrotoxic crisis or storm Assessment and Plan (1) COPD exacerbation ICD Code: J44.1 - Chronic obstructive pulmonary disease with (acute) exacerbation Status: Acute Plan: Continue bronchodilators, IV steroids, O2 as needed DC tobacco Echo reviewed and normal. (2) Tobacco abuse ICD Code: Z72.0 - Tobacco abuse Status: Chronic Plan: Patient counseled to discontinue tobacco (3) Tachycardia ICD Code: R00.0 - Tachycardia Status: Acute Plan: Likely from anxiety versus, bronchodilation. Improved Likely exacerbated by hyperthyroid disorder Permanent Comment: Sinus Last Edited By: Joseluis Mancilla on Aug 19, 2013 11:25 (4) Anxiety ICD Code: F41.9 - Anxiety Status: Chronic Plan: Xanax as needed Continue buspirone Treat thyroid disorder (5) Hyperthyroidism ICD Code: E05.90 - Thyrotoxicosis, unspecified without thyrotoxic crisis or storm Plan: methimazole 5mg daily Discharge Planning Pending improving. poss tomorrow if improved Likely will need O2 at discharge, will do O2 walking test before DC Joyce Desai MD Jun 24, 2017 14:15
[2017-06-24] MEDS: ENOXAPARIN SODIUM 40 MG/0.4 ML SYRINGE SQ SCH (17:06)
[2017-06-25] VITALS (26 sets, daily range): BP systolic 99–147; BP diastolic 59–94; PULSE 88–118; RESP 12–48; TEMP 97.6–98.3; O2SAT 91–97
[2017-06-25] MEDS: CHLORHEXIDINE GLUCONATE 2 % 1 PACK (2 CLOTHS)(taper/protocol) TOPICAL SCH (06:10)
[2017-06-25] MEDS: RESP: ALBUTEROL 2.5 MG/IPRATROPIUM 0.5 MG NEB (PRN) NEB (06:15)
[2017-06-25] MEDS: ALPRAZolam 0.5 MG TAB PO PRN ×3 (06:20→22:58)
[2017-06-25] MEDS: RESP: ALBUTEROL 2.5 MG/IPRATROPIUM 0.5 MG NEB (SCH) NEB ×3 (07:43→20:10)
[2017-06-25] MEDS ORDERED: BUSP10TA PO (08:41)
[2017-06-25] MEDS ORDERED: IPRASOL INH (08:41)
[2017-06-25] MEDS ORDERED: PRED10PA PO (08:41)
[2017-06-25] MEDS ORDERED: VENTAER INH (08:41)
[2017-06-25] MEDS ORDERED: OXYGENDME NAS.CANULA (08:41)
[2017-06-25] MEDS ORDERED: FLUT50SP EACH NARE (08:41)
[2017-06-25] MEDS ORDERED: ADVA250A INH (08:41)
--- NOTE | 2017-06-25 08:42 | HHI.DS ---
Discharge Summary Admission Date Jun 22, 2017 at 15:07 Discharge Date: Jun 28, 2017 Admitting Diagnosis Hypoxemia; COPD Exacerbation (1) COPD exacerbation ICD Code: J44.1 - Chronic obstructive pulmonary disease with (acute) exacerbation Status: Acute (2) Tobacco abuse ICD Code: Z72.0 - Tobacco abuse Status: Chronic (3) Tachycardia ICD Code: R00.0 - Tachycardia Status: Acute (4) Anxiety ICD Code: F41.9 - Anxiety Status: Chronic (5) Hyperthyroidism ICD Code: E05.90 - Thyrotoxicosis, unspecified without thyrotoxic crisis or storm Procedures none Brief History - From Admission This patient is a 51-year-old female with a known history of COPD. She had increased work of breathing and dyspnea on exertion for the last week. She went to the emergency room yesterday and had some nebulizers and went home with oral prednisone. She came back to the emergency room today with increased work of breathing. She notes no fever. She reports she had a recent viral infection and noted that her breathing got worse. She was hypoxemic with 91% on room air and she has been quite tachypneic and tachycardic. Patient been admitted to the hospital for further evaluation. CBC/BMP: 06/23/17 0517 06/23/17 0517 Significant Findings Laboratory Tests Test 06/22/17 17:43 06/22/17 18:40 06/23/17 05:17 06/23/17 17:45 Blood Gas Oxygen Saturation 87 % (90-100) Thyroid Stimulating Hormone 3rd Gen LESS THAN 0.005 uIU/ML Neutrophils (%) (Auto) 86.4 % (16.0-70.0) Lymphocytes # (Auto) 0.8 TH/MM3 (1.0-4.8) Creatinine 0.39 MG/DL (0.50-1.00) Random Glucose 165 MG/DL (74-106) Chloride Level 109 MEQ/L (98-107) Free Triiodothyronine (T3) pg/dL 4.75 PG/ML (2.18-3.98) Test 06/23/17 17:50 Blood Gas HCO3 27 mmol/L (22-26) Blood Gas Base Excess 2.5 mmol/L (-2-2) Arterial Blood Partial Pressure CO2 46 mmHg (38-42) Imaging Last Impressions Chest X-Ray 06/25/17 0000 Signed Impressions: Service Date/Time: May 21:55 - CONCLUSION: No evidence of acute cardiopulmonary disease. Boogie Ross MD PE at Discharge GENERAL: This is a well-nourished, well-developed patient, short of breath with minimal exertion, no goiter CARDIOVASCULAR: Regular rate and rhythm without murmurs, gallops, or rubs. RESPIRATORY: Decreased breath sounds bilaterally No wheezes, rales, or rhonchi. GASTROINTESTINAL: Abdomen soft, non-tender, nondistended. Normal active bowel sounds MUSCULOSKELETAL: Extremities without clubbing, cyanosis, or edema. NEURO: Alert & Oriented x4 to person, place, time, situation. Moves all ext x4 Hospital Course This patient is a 51-year-old female with a known history of COPD. 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 She came back to the emergency room with increased work of breathing the next day. She notes no fever. She reports she had a recent viral infection and noted that her breathing got worse. She was hypoxemic with 91% on room air and she has been quite tachypneic and tachycardic. Patient been admitted to the hospital for further evaluation. Patient with severe COPD exacerbation, acute respiratory failure, anxious, dessating, and dependent on O2. Patient was started on sterids, nebs,, received Z pack , IS, EZPap , acapella. [place] pulm was consulted. Patient was also noted with hyperthyroidism, started methimazole. Patient improved, failed walking O2 test and needs O2 at home, she was discharged home in stable condition. (1) COPD exacerbation ICD Code: J44.1 - Chronic obstructive pulmonary disease with (acute) exacerbation Status: Acute Plan: Continue bronchodilators, IV steroids- taper as tolerated, O2 as needed Counselled regarding tobacco use, patient will follow up counseling as OP as well. Echo reviewed and normal. Repeat CXR reviewed no change Start Z pack, will add IS, EZpap, Acapella Consult pulm, appreciate recommendations Add flonase as with nasal congestion Benadryl at night as with pruritus and also helps with sleep (2) Tobacco abuse ICD Code: Z72.0 - Tobacco abuse Status: Chronic Plan: Patient counseled to discontinue tobacco. (3) Tachycardia, improving ICD Code: R00.0 - Tachycardia Status: Acute Plan: Likely from anxiety versus, bronchodilation. Improved Likely exacerbated by hyperthyroid disorder (4) Anxiety ICD Code: F41.9 - Anxiety Status: Chronic Plan: Xanax as needed Continue buspirone Treat thyroid disorder (5) Hyperthyroidism ICD Code: E05.90 - Thyrotoxicosis, unspecified without thyrotoxic crisis or storm Plan: methimazole 5mg daily Discharge Planning Pending improvement, poss DC 1-2 days if cleared by pulm Need O2 at discharge Pt Condition on Discharge: Stable Discharge Disposition: Disch w/ Home Health Serv Discharge Time: > 30 minutes Discharge Instructions DIET: Follow Instructions for: Heart Healthy Diet Activities you can perform: Regular-No Restrictions Follow up Referrals: PCP Follow-up - 2-3 Days Pulmonology - 1 Week New Medications: Alprazolam (Xanax) 0.5 Mg Tab 0.5 MG PO Q12HR PRN for ANXIETY, #10 TAB 0 Refills Nebulizer (Nebulizer) 1 Mis Mis EA .ROUTE DIRECTED for Breathing Treatment, #1 0 Refills Oxygen (O2) (Oxygen (O2)) Device LITER GENE.CANULA CONTINUOUS for Prevent Hypoxemia, #2 Oxygen Concentrator Portable Gaseous 2 L/min via Nasal Canula Continuous For 99 months Prednisone (21) 10 mg tab Dose Pack (Prednisone (21) 10 mg tab Dose Pack) 10 Mg Pack 10 MG PO DIRECTED for Inflammation, #1 DSPK 0 Refills Methimazole (Tapazole) 5 Mg Tab 5 MG PO DAILY for thyroid, #30 TAB Continued Medications: Albuterol 18 GM Inh (Ventolin Hfa 18 GM Inh) 90 Mcg/Act Aer 2 PUFF INH Q6H PRN for SHORTNESS OF BREATH, #1 INHALER 0 Refills (This prescription has been renewed) Buspirone (Buspirone) 10 Mg Tab 10 MG PO BID for Anxiety, #60 TAB 3 Refills (This prescription has been renewed) Fluconazole (Diflucan) 200 Mg Tab 200 MG PO DAILY for Infection, #1 TAB 0 Refills Fluticasone Nasal [place] (Fluticasone Nasal [place]) 50 Mcg/Act Naspr 100 MCG EACH NARE BID for Allergy Management, #1 BOTTLE 3 Refills (This prescription has been renewed) 50 mcg/spray Fluticasone-Salmeterol Inh (Advair Diskus Inh) 250-50 Mcg/Blist Aer 1 PUFF INH BID for Shortness of Breath, #1 INHALER 0 Refills (This prescription has been renewed) Rinse mouth after use. Ipratropium-Albuterol Neb (Duoneb) 0.5-2.5 Mg/3 Ml Neb 1 NEBULE INH Q4HR NEB for Breathing Treatment, #180 NEBULE 0 Refills (This prescription has been renewed) Discontinued Medications: Prednisone (Prednisone) 50 Mg Tab 50 MG PO DAILY, #5 TAB 0 Refills Joyce Desai MD Jun 25, 2017 08:42
--- NOTE | 2017-06-25 08:46 | HHI.FF ---
Face to Face Verification Diagnosis: (1) Respiratory distress (2) Leukocytosis (3) PTSD (post-traumatic stress disorder) (4) PNA (pneumonia) (5) Respiratory failure with hypoxia (6) COPD with acute exacerbation (7) Hyperthyroidism (8) Non-compliant patient (9) Anxiety Physical Therapy Order: Evaluate and Treat Home Health Nursing Order: Medical education Signs/symptoms of disease process Oxygen administration education Nursing assessment with vital signs I have seen patient Digna Sher on 06/25/17. My clinical findings support the need for the requested home health care services because: Ltd mobility - disease progression Patient has SOB I certify that my clinical findings support that this patient is homebound because: Post-op weakness Hx COPD- exertion dyspnea/weakness Joyce Desai MD Jun 25, 2017 08:46
[2017-06-25] MEDS: methylPREDNISolone SOD SUCC 40 MG/1 ML VIAL IV PUSH SCH ×3 (09:18→19:45)
[2017-06-25] MEDS: busPIRone HCL 10 MG TAB PO SCH ×2 (09:19→19:45)
[2017-06-25] MEDS: SODIUM CHLORIDE 0.9% FLUSH 10 ML FLUSH IV FLUSH SCH ×2 (09:19→19:46)
[2017-06-25] MEDS: METHIMAZOLE 5 MG TAB PO SCH (09:25)
[2017-06-25] MEDS: BUDESONIDE-FORMOTEROL 160/4.5 MCG INHALER INH SCH ×2 (09:29→19:46)
[2017-06-25] MEDS: BENZONATATE 100 MG CAP PO PRN (11:50)
--- NOTE | 2017-06-25 16:53 | HHI.PR ---
Subjective Remarks Seen earlier today. Patient is in bed, reports sob. She did fail walking O2 test in the morning, and required 4L O2 with ambulation. + wheezing and is coughing more. Objective Vitals Vital Signs Date Time Temp Pulse Resp B/P (MAP) Pulse Ox O2 Delivery O2 Flow Rate FiO2 06/25/17 16:00 106 18 127/72 (90) 93 06/25/17 16:00 92 Nasal Cannula 4.00 06/25/17 15:09 106 16 138/77 (97) 95 06/25/17 15:09 106 06/25/17 14:00 118 23 126/70 (88) 91 06/25/17 13:00 111 29 142/71 (94) 92 06/25/17 12:00 Nasal Cannula 4.00 06/25/17 12:00 101 22 103/71 (82) 94 06/25/17 11:10 100 25 116/83 (94) 92 06/25/17 10:00 95 48 99/59 (72) 97 06/25/17 09:00 91 23 123/73 (90) 06/25/17 08:05 97.9 95 21 147/94 (111) 95 06/25/17 08:05 Nasal Cannula 2.00 06/25/17 07:46 4.00 06/25/17 07:44 96 Nasal Cannula 4.00 06/25/17 07:00 92 34 118/76 (90) 96 06/25/17 07:00 92 06/25/17 06:00 91 Nasal Cannula 4.00 06/25/17 06:00 88 12 118/70 (86) 95 06/25/17 05:00 90 22 109/77 (88) 95 06/25/17 04:00 95 Nasal Cannula 3.00 06/25/17 04:00 98.3 92 14 111/81 (91) 94 06/25/17 03:00 92 15 115/83 (94) 96 06/25/17 02:00 94 18 100/73 (82) 95 06/25/17 01:00 96 21 124/72 (89) 95 06/25/17 00:00 98.2 102 18 123/80 (94) 94 06/25/17 00:00 96 Nasal Cannula 4.00 06/24/17 23:00 106 16 108/75 (86) 92 06/24/17 23:00 106 06/24/17 22:00 104 17 105/63 (77) 94 06/24/17 21:00 112 20 113/56 (75) 94 06/24/17 20:00 112 23 124/77 (93) 92 06/24/17 20:00 93 Nasal Cannula 4.00 06/24/17 19:29 93 Nasal Cannula 4.00 06/24/17 19:00 98.6 112 27 121/71 (88) 94 06/24/17 18:00 110 18 128/72 (90) 93 06/24/17 17:00 114 20 121/73 (89) 93 I/O 06/24/17 06/24/17 06/24/17 06/25/17 06/25/17 06/25/17 06:59 14:59 22:59 06:59 14:59 22:59 Intake Total 120 ml 600 ml 220 ml Output Total 400 ml 900 ml Balance -280 ml 600 ml -680 ml Intake Oral 120 ml 600 ml 220 ml Output Urine Total 400 ml 900 ml # Voids 3 1 # Bowel Movements 0 0 0 Result Diagram: 06/23/17 0517 06/23/17 0517 Imaging Last Impressions Chest X-Ray 06/23/17 0000 Signed Impressions: Service Date/Time: Friday, June 23, 2017 17:58 - CONCLUSION: No evidence of acute cardiopulmonary disease. Boogie Ross MD Objective Remarks GENERAL: This is a well-nourished, well-developed patient, short of breath with minimal exertion, no goiter CARDIOVASCULAR: Regular rate and rhythm without murmurs, gallops, or rubs. RESPIRATORY: Decreased breath sounds bilaterally No wheezes, rales, or rhonchi. GASTROINTESTINAL: Abdomen soft, non-tender, nondistended. Normal active bowel sounds MUSCULOSKELETAL: Extremities without clubbing, cyanosis, or edema. NEURO: Alert & Oriented x4 to person, place, time, situation. Moves all ext x4 A/P Problem List: (1) COPD exacerbation ICD Code: J44.1 - Chronic obstructive pulmonary disease with (acute) exacerbation Status: Acute (2) Tobacco abuse ICD Code: Z72.0 - Tobacco abuse Status: Chronic (3) Tachycardia ICD Code: R00.0 - Tachycardia Status: Acute Permanent Comment: Sinus Last Edited By: Joseluis Mancilla on Aug 19, 2013 11:25 (4) Anxiety ICD Code: F41.9 - Anxiety Status: Chronic (5) Hyperthyroidism ICD Code: E05.90 - Thyrotoxicosis, unspecified without thyrotoxic crisis or storm Assessment and Plan (1) COPD exacerbation ICD Code: J44.1 - Chronic obstructive pulmonary disease with (acute) exacerbation Status: Acute Plan: Continue bronchodilators, IV steroids- tapered, O2 as needed DC tobacco Echo reviewed and normal. Will repeat CXR, will start Z pack, will add IS, EZpap Discussed with respiratory, patient failed O2 walking test and requires 4L O2 by NC. Will consult pulmn as well (2) Tobacco abuse ICD Code: Z72.0 - Tobacco abuse Status: Chronic Plan: Patient counseled to discontinue tobacco (3) Tachycardia ICD Code: R00.0 - Tachycardia Status: Acute Plan: Likely from anxiety versus, bronchodilation. Improved Likely exacerbated by hyperthyroid disorder Permanent Comment: Sinus Last Edited By: Joseluis Mancilla on Aug 19, 2013 11:25 (4) Anxiety ICD Code: F41.9 - Anxiety Status: Chronic Plan: Xanax as needed Continue buspirone Treat thyroid disorder (5) Hyperthyroidism ICD Code: E05.90 - Thyrotoxicosis, unspecified without thyrotoxic crisis or storm Plan: methimazole 5mg daily Discharge Planning Pending improving. Not ready for DC yet as not improving Likely will need O2 at discharge, will do O2 walking test before DC Joyce Desai MD Jun 25, 2017 16:53
[2017-06-25] MEDS ORDERED: methylPREDNISolone SOD SUCC 40 MG/1 ML VIAL IV PUSH ONE (17:00)
[2017-06-25 18:06] LABS: AUTOMATED NEUTROPHIL # 11.5 TH/MM3 (1.8-7.7); BASOPHIL # 0.2 TH/MM3 (0-0.2); BASOPHIL % 1.6 % (0.0-2.0); EOSINOPHIL % 0.1 % (0.0-4.0); HEMATOCRIT 40.8 % (35.0-46.0); HEMO FLAGS DIFF FINAL; LYMPH % 10.8 % (9.0-44.0); LYMPHOCYTE # 1.5 TH/MM3 (1.0-4.8); MEAN CELL VOLUME 85.2 FL (80.0-100.0); MONO % 3.5 % (0.0-8.0); PLATELET COUNT 372 TH/MM3 (150-450); RED BLOOD COUNT 4.79 MIL/MM3 (4.00-5.30); WHITE BLOOD COUNT 13.7 TH/MM3 (4.0-11.0)
[2017-06-25 18:18] LABS: POTASSIUM 3.9 MEQ/L (3.5-5.1)
[2017-06-25 18:21] LABS: BICARBONATE 29.2 MEQ/L (21.0-32.0)
[2017-06-25] MEDS: ENOXAPARIN SODIUM 40 MG/0.4 ML SYRINGE SQ SCH (18:33)
[2017-06-25] MEDS: guaiFENesin/DEXTROMETHORPHAN 200 MG/20 MG/10 ML CUP PO PRN (19:45)
--- NOTE | 2017-06-25 22:11 | RADRPT ---
EXAM DATE/TIME: 06/25/2017 21:55 [facility] COMPARISON: CHEST SINGLE AP, June 23, 2017, 17:58. INDICATIONS : Short of breath MEDICAL HISTORY : Chronic obstructive pulmonary disease. SURGICAL HISTORY : None. ENCOUNTER: Initial ACUITY: 1 day PAIN SCORE: 0/10 LOCATION: Bilateral chest FINDINGS: A single view of the chest demonstrates the lungs to be symmetrically aerated without evidence of mas s, infiltrate or effusion. The cardiomediastinal contours are unremarkable. Osseous structures are intact. CONCLUSION: No evidence of acute cardiopulmonary disease. Boogie Ross MD on June 25, 2017 at 22:09 Board Certified Radiologist. This report was verified electronically.
[2017-06-26] VITALS (20 sets, daily range): BP systolic 97–143; BP diastolic 58–83; PULSE 86–110; RESP 12–33; TEMP 97.6–98.4; O2SAT 90–95
[2017-06-26] MEDS: CHLORHEXIDINE GLUCONATE 2 % 1 PACK (2 CLOTHS)(taper/protocol) TOPICAL SCH (04:00)
[2017-06-26 04:38] LABS: AUTOMATED NEUTROPHIL # 9.2 TH/MM3 (1.8-7.7); BASOPHIL # 0.1 TH/MM3 (0-0.2); BASOPHIL % 1.1 % (0.0-2.0); HEMATOCRIT 41.3 % (35.0-46.0); LYMPH % 16.9 % (9.0-44.0); MEAN CORPUSCULAR HEMOGLOBIN 27.9 PG (27.0-34.0); MEAN CORPUSCULAR HGB CONC 32.5 % (32.0-36.0); MONO % 5.3 % (0.0-8.0); NEUT % 76.7 % (16.0-70.0); PLATELET COUNT 363 TH/MM3 (150-450); RED BLOOD COUNT 4.81 MIL/MM3 (4.00-5.30); RED CELL DISTRIBUTION WIDTH 13.6 % (11.6-17.2); WHITE BLOOD COUNT 11.9 TH/MM3 (4.0-11.0)
[2017-06-26 04:40] LABS: HEMO FLAGS DIFF FINAL
[2017-06-26 04:44] LABS: POTASSIUM 4.1 MEQ/L (3.5-5.1)
[2017-06-26 04:48] LABS: MAGNESIUM 2.4 MG/DL (1.5-2.5)
[2017-06-26] MEDS: RESP: ALBUTEROL 2.5 MG/IPRATROPIUM 0.5 MG NEB (SCH) NEB ×3 (08:10→19:47)
[2017-06-26] MEDS: methylPREDNISolone SOD SUCC 40 MG/1 ML VIAL IV PUSH SCH ×2 (08:31→19:37)
[2017-06-26] MEDS: busPIRone HCL 10 MG TAB PO SCH ×2 (08:31→19:37)
[2017-06-26] MEDS: METHIMAZOLE 5 MG TAB PO SCH (08:31)
[2017-06-26] MEDS: BUDESONIDE-FORMOTEROL 160/4.5 MCG INHALER INH SCH ×2 (08:31→19:38)
[2017-06-26] MEDS: SODIUM CHLORIDE 0.9% FLUSH 10 ML FLUSH IV FLUSH SCH ×2 (08:32→19:38)
[2017-06-26] MEDS: ALPRAZolam 0.5 MG TAB PO PRN (08:34)
--- NOTE | 2017-06-26 12:14 | HHI.PR ---
Subjective Remarks In the bed, ambulated today drops to 86 on 2L . Says sob improved some, no fever or chills. Less cough. No n/v/d/c. Less wheezing. Objective Vitals Vital Signs Date Time Temp Pulse Resp B/P (MAP) Pulse Ox O2 Delivery O2 Flow Rate FiO2 06/26/17 11:00 100 25 111/70 (84) 06/26/17 10:00 98 18 117/78 (91) 06/26/17 09:00 96 20 123/77 (92) 93 06/26/17 09:00 96 06/26/17 08:52 98 06/26/17 08:52 98 33 136/83 (100) 90 06/26/17 08:12 93 Nasal Cannula 3.00 06/26/17 08:01 96 33 111/73 (86) 93 06/26/17 08:01 96 06/26/17 08:00 93 Nasal Cannula 3.00 Humidified 06/26/17 07:30 97.7 06/26/17 07:01 86 13 116/75 (89) 95 06/26/17 07:01 86 06/26/17 06:01 86 12 115/83 (94) 95 06/26/17 05:01 90 23 97/58 (71) 94 06/26/17 05:01 94 Nasal Cannula 3.00 Humidified 06/26/17 04:01 98.4 86 14 115/71 (86) 94 06/26/17 04:01 94 Nasal Cannula 3.00 Humidified 06/26/17 03:01 86 13 117/77 (90) 95 06/26/17 03:01 95 Nasal Cannula 3.00 Humidified 06/26/17 03:00 94 Nasal Cannula 3.00 Humidified 06/26/17 02:01 94 Nasal Cannula 3.00 Humidified 06/26/17 02:01 88 14 114/76 (89) 94 06/26/17 02:01 88 06/26/17 01:01 92 13 124/76 (92) 94 06/26/17 01:00 95 Nasal Cannula 3.00 Humidified 06/26/17 00:01 97.6 90 15 131/81 (98) 95 06/26/17 00:01 90 06/26/17 00:00 95 Nasal Cannula 3.00 Humidified 06/25/17 23:01 102 06/25/17 23:01 102 35 142/84 (103) 92 06/25/17 23:00 93 Nasal Cannula 3.00 Humidified 06/25/17 22:01 100 06/25/17 22:01 100 23 142/84 (103) 93 06/25/17 22:00 94 Nasal Cannula 3.00 Humidified 06/25/17 21:01 98 17 129/76 (93) 94 06/25/17 21:00 93 Nasal Cannula 3.00 Humidified 06/25/17 20:11 95 Nasal Cannula 3.00 06/25/17 20:01 108 06/25/17 20:01 97.6 108 24 134/85 (101) 91 06/25/17 20:00 91 Nasal Cannula 3.00 Humidified 06/25/17 19:00 106 24 107/60 (76) 93 06/25/17 18:00 110 29 140/82 (101) 93 06/25/17 17:00 112 36 114/73 (87) 94 06/25/17 16:00 106 18 127/72 (90) 93 06/25/17 16:00 92 Nasal Cannula 4.00 06/25/17 15:09 106 16 138/77 (97) 95 06/25/17 15:09 106 06/25/17 14:00 118 23 126/70 (88) 91 06/25/17 13:00 111 29 142/71 (94) 92 I/O 06/25/17 06/25/17 06/25/17 06/26/17 06/26/17 06/26/17 07:00 15:00 23:00 07:00 15:00 23:00 Intake Total 220 ml 420 ml 480 ml Output Total 900 ml 1150 ml 600 ml Balance -680 ml -730 ml -120 ml Intake Oral 220 ml 420 ml 480 ml Output Urine Total 900 ml 1150 ml 600 ml # Voids 1 # Bowel Movements 0 2 Result Diagram: 06/26/17 0422 06/26/17 0422 Imaging Last Impressions Chest X-Ray 06/25/17 0000 Signed Impressions: Service Date/Time: May 21:55 - CONCLUSION: No evidence of acute cardiopulmonary disease. Boogie Ross MD Objective Remarks GENERAL: This is a well-nourished, well-developed patient, short of breath with minimal exertion, no goiter CARDIOVASCULAR: Regular rate and rhythm without murmurs, gallops, or rubs. RESPIRATORY: Decreased breath sounds bilaterally No wheezes, rales, or rhonchi. GASTROINTESTINAL: Abdomen soft, non-tender, nondistended. Normal active bowel sounds MUSCULOSKELETAL: Extremities without clubbing, cyanosis, or edema. NEURO: Alert & Oriented x4 to person, place, time, situation. Moves all ext x4 A/P Problem List: (1) COPD exacerbation ICD Code: J44.1 - Chronic obstructive pulmonary disease with (acute) exacerbation Status: Acute (2) Tobacco abuse ICD Code: Z72.0 - Tobacco abuse Status: Chronic (3) Tachycardia ICD Code: R00.0 - Tachycardia Status: Acute Permanent Comment: Sinus Last Edited By: Joseluis Mancilla on Aug 19, 2013 11:25 (4) Anxiety ICD Code: F41.9 - Anxiety Status: Chronic (5) Hyperthyroidism ICD Code: E05.90 - Thyrotoxicosis, unspecified without thyrotoxic crisis or storm Assessment and Plan (1) COPD exacerbation ICD Code: J44.1 - Chronic obstructive pulmonary disease with (acute) exacerbation Status: Acute Plan: Continue bronchodilators, IV steroids- tapered, O2 as needed DC tobacco Echo reviewed and normal. Repeat CXR reviewed no change Start Z pack, will add IS, EZpap, Acapella Consult pulmn as well (2) Tobacco abuse ICD Code: Z72.0 - Tobacco abuse Status: Chronic Plan: Patient counseled to discontinue tobacco (3) Tachycardia ICD Code: R00.0 - Tachycardia Status: Acute Plan: Likely from anxiety versus, bronchodilation. Improved Likely exacerbated by hyperthyroid disorder Permanent Comment: Sinus Last Edited By: Joseluis Mancilla on Aug 19, 2013 11:25 (4) Anxiety ICD Code: F41.9 - Anxiety Status: Chronic Plan: Xanax as needed Continue buspirone Treat thyroid disorder (5) Hyperthyroidism ICD Code: E05.90 - Thyrotoxicosis, unspecified without thyrotoxic crisis or storm Plan: methimazole 5mg daily Discharge Planning Pending improvement, poss DC tomorrow Need O2 at discharge, will do O2 walking test before DC Joyce Desai MD Jun 26, 2017 12:14
[2017-06-26] MEDS ORDERED: AZITHROMYCIN 250 MG TAB PO ONE (12:30)
--- NOTE | 2017-06-26 12:45 | MB ---
cc: ANTONIO DANIEL DATE OF CONSULTATION 06/26/2017 REASON FOR CONSULTATION Respiratory distress with COPD. PRESENT ILLNESS This is a 51-hour-old white female with a longstanding history of COPD and a history of smoking who was admitted through the emergency room with a history of dyspnea, cough and wheezing. The patient has been on nebulized bronchodilators prednisone and recently on antibiotics, but had a lower respiratory infection leading to severe respiratory distress and hypoxemia and thus she came to the hospital and was admitted. She has been started on IV steroids, antibiotics and now feels better. However, she still requires oxygen since her sats drop into the 80s and she is on room air. The patient has a cough, but does not bring up much sputum. The sputum and has been slightly yellow. She is not running any fevers. She has no hemoptysis. She has mild reflux. PAST HISTORY Past history includes: 1. A history of severe COPD and recurrent exacerbations. 2. A history of pneumonia. 3. A history of anxiety disorder. 4. A history of hypothyroidism. 5. She has a tubal ligation. 6. A in the past. 7. PTSD according to the patient. ALLERGIES PENICILLIN AND CODEINE HABITS The patient smoked half to one-pack per day for over 35 years and continues to smoke. No significant alcohol. FAMILY HISTORY Noncontributory REVIEW OF SYSTEMS The patient has lost weight. She has no leg swelling. She has sinus drainage, postnasal drip, cough and wheezing. She has epigastric distress. No nausea. Denies urinary symptoms. No leg or calf muscle pains. She does have mild joint pains and denies any skin lesions. She has depression and anxiety. PHYSICAL EXAMINATION This is an averagely built middle-aged white female who is anxious, dyspneic and face was plethoric. VITAL SIGNS: Blood pressure 128/80, pulse is 112, respirations 24, temperature 98.2. HEENT: Head normocephalic. Pupils reactive and equal. Tongue is moist. Throat is mildly injected. Nasal mucosa is clear. He has no inflammation. NECK: No bruits. No thyroid enlargement or lymphadenopathy. CHEST: Increased AP diameter with percussion note resonant throughout. Expiratory wheezes are scattered bilaterally, prolonged expirations with occasional crackles on the right side. HEART: Heart sounds are regular S1-S2. No murmur. ABDOMEN: Soft, scaphoid. No mass. No organomegaly or tenderness. EXTREMITIES: No edema. There is no clubbing. Peripheral pulses are well felt. Reflexes are 1+ with no gross motor deficits. NEUROLOGIC: Cranial nerves are grossly intact. SKIN: Dry and warm. IMPRESSION 1. COPD with acute exacerbation 2. Acute respiratory failure 3. Nicotine dependency 4. Anxiety and depression PLAN The patient has been placed on nebulized DuoNeb solution q.i.d. We will continue with Solu-Medrol 40 mg IV twice daily and Symbicort 160 x 4.5 two puffs twice daily. She is already on oral antibiotics which she could continue for four days and she has requested for a cough syrup and thus will be given Tussi-Organidin 10 cc q6 p.r.n. Pulmonary function study to be done at the bedside. The patient will be given home oxygen if she qualifies and her sats drop below 89% on room air. She was counseled about quitting cigarette smoking. Sputum will be sent for Gram stain and culture and antianxiety medications will be prescribed as needed. Thank you Dr. Martinez for this consultation. MD FLORENCIO Han/PILAR /12:07 PM /12:25 PM
[2017-06-26] MEDS: guaiFENesin/DEXTROMETHORPHAN 200 MG/20 MG/10 ML CUP PO PRN ×2 (15:36→20:59)
[2017-06-26] MEDS: FLUTICASONE PROPIONATE 50 MCG/ACT 16 GM NASAL SPRAY NASAL SCH ×2 (15:37→19:37)
[2017-06-26] MEDS: NYSTATIN SUSP 500,000 U/5 ML CUP SWISH-SWAL SCH ×3 (15:38→19:37)
[2017-06-26] MEDS: BENZONATATE 100 MG CAP PO PRN (17:23)
--- NOTE | 2017-06-26 18:12 | HHI.PR ---
Subjective Remarks Feels better today. On o2 3 l. Needs home O2. Cough with no sputum. Anxious Objective Vital Signs Date Time Temp Pulse Resp B/P (MAP) Pulse Ox O2 Delivery O2 Flow Rate FiO2 06/26/17 16:00 110 22 143/75 (97) 92 06/26/17 16:00 92 Nasal Cannula 3.00 Humidified 06/26/17 15:00 104 06/26/17 12:00 94 13 124/80 (95) 94 06/26/17 12:00 94 Nasal Cannula 3.00 Humidified 06/26/17 11:00 100 25 111/70 (84) 06/26/17 10:00 98 18 117/78 (91) 06/26/17 09:00 96 20 123/77 (92) 93 06/26/17 09:00 96 06/26/17 08:52 98 06/26/17 08:52 98 33 136/83 (100) 90 06/26/17 08:12 93 Nasal Cannula 3.00 06/26/17 08:01 96 33 111/73 (86) 93 06/26/17 08:01 96 06/26/17 08:00 93 Nasal Cannula 3.00 Humidified 06/26/17 07:30 97.7 06/26/17 07:01 86 13 116/75 (89) 95 06/26/17 07:01 86 06/26/17 06:01 86 12 115/83 (94) 95 06/26/17 05:01 90 23 97/58 (71) 94 06/26/17 05:01 94 Nasal Cannula 3.00 Humidified 06/26/17 04:01 98.4 86 14 115/71 (86) 94 06/26/17 04:01 94 Nasal Cannula 3.00 Humidified 06/26/17 03:01 86 13 117/77 (90) 95 06/26/17 03:01 95 Nasal Cannula 3.00 Humidified 06/26/17 03:00 94 Nasal Cannula 3.00 Humidified 06/26/17 02:01 94 Nasal Cannula 3.00 Humidified 06/26/17 02:01 88 14 114/76 (89) 94 06/26/17 02:01 88 06/26/17 01:01 92 13 124/76 (92) 94 06/26/17 01:00 95 Nasal Cannula 3.00 Humidified 06/26/17 00:01 97.6 90 15 131/81 (98) 95 06/26/17 00:01 90 06/26/17 00:00 95 Nasal Cannula 3.00 Humidified 06/25/17 23:01 102 06/25/17 23:01 102 35 142/84 (103) 92 06/25/17 23:00 93 Nasal Cannula 3.00 Humidified 06/25/17 22:01 100 06/25/17 22:01 100 23 142/84 (103) 93 06/25/17 22:00 94 Nasal Cannula 3.00 Humidified 06/25/17 21:01 98 17 129/76 (93) 94 06/25/17 21:00 93 Nasal Cannula 3.00 Humidified 06/25/17 20:11 95 Nasal Cannula 3.00 06/25/17 20:01 108 06/25/17 20:01 97.6 108 24 134/85 (101) 91 06/25/17 20:00 91 Nasal Cannula 3.00 Humidified 06/25/17 19:00 106 24 107/60 (76) 93 I/O 06/25/17 06/25/17 06/25/17 06/26/17 06/26/17 06/26/17 07:00 15:00 23:00 07:00 15:00 23:00 Intake Total 220 ml 420 ml 480 ml Output Total 900 ml 1150 ml 600 ml Balance -680 ml -730 ml -120 ml Intake Oral 220 ml 420 ml 480 ml Output Urine Total 900 ml 1150 ml 600 ml # Voids 1 # Bowel Movements 0 2 Result Diagram: 06/26/17 04206/26/17 042 Objective Remarks This is an averagely built middle-aged white female who is anxious, dyspneic and face was plethoric. HEENT: Head normocephalic. Pupils reactive and equal. Tongue is moist. Throat is mildly injected. Nasal mucosa is clear. He has no inflammation. NECK: No bruits. No thyroid enlargement or lymphadenopathy. CHEST: Increased AP diameter with percussion note resonant throughout. Expiratory wheezes are scattered bilaterally, prolonged expirations with No crackles. HEART: Heart sounds are regular S1-S2. No murmur. ABDOMEN: Soft, scaphoid. No mass. No organomegaly or tenderness. EXTREMITIES: No edema. There is no clubbing. Peripheral pulses are well felt. Reflexes are 1+ with no gross motor deficits. NEUROLOGIC: Cranial nerves are grossly intact. SKIN: Dry and warm. Assessment and Plan Assessment and Plan IMPRESSION 1. COPD with acute exacerbation 2. Acute respiratory failure 3. Nicotine dependency 4. Anxiety and depression Plan : 1. O2 at 3 L. 2. Taper solumedrol to 40 mg TID. 3. Nebs qid , duoneb. 4. PFT in am. 5. Symbicort 160/4.5 mcg , 2puffs bid. 6. CBc,BMP in am Jarett Malloy MD Jun 26, 2017 18:12
[2017-06-26] MEDS: ENOXAPARIN SODIUM 40 MG/0.4 ML SYRINGE SQ SCH (18:38)
[2017-06-26] MEDS: diphenhydrAMINE HCL 25 MG CAP PO PRN (19:00)
[2017-06-27] VITALS (8 sets, daily range): BP systolic 99–129; BP diastolic 62–80; PULSE 88–106; RESP 27–39; TEMP 97.1–98.6; O2SAT 93–96
[2017-06-27] MEDS: CHLORHEXIDINE GLUCONATE 2 % 1 PACK (2 CLOTHS)(taper/protocol) TOPICAL SCH (04:00)
[2017-06-27] MEDS: RESP: ALBUTEROL 2.5 MG/IPRATROPIUM 0.5 MG NEB (PRN) NEB (05:40)
[2017-06-27] MEDS: RESP: ALBUTEROL 2.5 MG/IPRATROPIUM 0.5 MG NEB (SCH) NEB ×3 (07:39→19:31)
[2017-06-27] MEDS: METHIMAZOLE 5 MG TAB PO SCH (07:48)
[2017-06-27] MEDS: methylPREDNISolone SOD SUCC 40 MG/1 ML VIAL IV PUSH SCH ×2 (07:48→19:46)
[2017-06-27] MEDS: NYSTATIN SUSP 500,000 U/5 ML CUP SWISH-SWAL SCH ×4 (07:48→19:47)
[2017-06-27] MEDS: busPIRone HCL 10 MG TAB PO SCH ×2 (07:48→19:46)
[2017-06-27] MEDS: AZITHROMYCIN 250 MG TAB PO SCH (07:48)
[2017-06-27] MEDS: SODIUM CHLORIDE 0.9% FLUSH 10 ML FLUSH IV FLUSH SCH ×2 (07:52→19:47)
[2017-06-27] MEDS: FLUTICASONE PROPIONATE 50 MCG/ACT 16 GM NASAL SPRAY NASAL SCH ×2 (07:52→19:47)
[2017-06-27] MEDS: BUDESONIDE-FORMOTEROL 160/4.5 MCG INHALER INH SCH ×2 (07:53→19:47)
[2017-06-27] MEDS: diphenhydrAMINE HCL 25 MG CAP PO PRN ×2 (08:01→14:03)
--- NOTE | 2017-06-27 09:00 | HHI.PR ---
Subjective Remarks Feels improved some but not at baseline, sattign well on 3L NC. No fever or chills. With nonproductive cough. Has nasal congestion restart flonase. Patient says she had itching, received benadryl last night and also helped with sleep. Says she was able to sleep better at night with Benadryl. SOB and wheezing improved some. Objective Vitals Vital Signs Date Time Temp Pulse Resp B/P (MAP) Pulse Ox O2 Delivery O2 Flow Rate FiO2 06/27/17 08:00 94 06/27/17 08:00 97.1 98 37 122/74 (90) 93 06/27/17 08:00 92 Nasal Cannula 3.00 Humidified 06/27/17 07:42 94 Nasal Cannula 3.00 06/27/17 04:00 97.8 90 27 117/80 (92) 95 06/27/17 04:00 94 Nasal Cannula Humidified 06/27/17 00:00 88 06/27/17 00:00 98.4 90 39 101/76 (84) 95 06/27/17 00:00 95 Nasal Cannula 3.00 Humidified 06/26/17 20:00 95 Nasal Cannula 3.00 Humidified 06/26/17 20:00 89 06/26/17 20:00 98.3 89 29 127/79 (95) 94 06/26/17 19:47 95 Nasal Cannula 3.00 06/26/17 16:00 110 22 143/75 (97) 92 06/26/17 16:00 92 Nasal Cannula 3.00 Humidified 06/26/17 15:00 104 06/26/17 12:00 94 13 124/80 (95) 94 06/26/17 12:00 94 Nasal Cannula 3.00 Humidified 06/26/17 11:00 100 25 111/70 (84) 06/26/17 10:00 98 18 117/78 (91) 06/26/17 09:00 96 20 123/77 (92) 93 06/26/17 09:00 96 I/O 06/26/17 06/26/17 06/26/17 06/27/17 06/27/17 06/27/17 07:00 15:00 23:00 07:00 15:00 23:00 Intake Total 480 ml 920 ml 240 ml Output Total 600 ml 750 ml 1400 ml Balance -120 ml 170 ml -1160 ml Intake Oral 480 ml 920 ml 240 ml Output Urine Total 600 ml 750 ml 1400 ml Result Diagram: 06/26/17 0422 06/26/17 0422 Imaging Last Impressions Chest X-Ray 06/25/17 0000 Signed Impressions: Service Date/Time: May 21:55 - CONCLUSION: No evidence of acute cardiopulmonary disease. Boogie Ross MD Objective Remarks GENERAL: This is a well-nourished, well-developed patient, short of breath with minimal exertion, no goiter CARDIOVASCULAR: Regular rate and rhythm without murmurs, gallops, or rubs. RESPIRATORY: Decreased breath sounds bilaterally No wheezes, rales, or rhonchi. GASTROINTESTINAL: Abdomen soft, non-tender, nondistended. Normal active bowel sounds MUSCULOSKELETAL: Extremities without clubbing, cyanosis, or edema. NEURO: Alert & Oriented x4 to person, place, time, situation. Moves all ext x4 A/P Problem List: (1) COPD exacerbation ICD Code: J44.1 - Chronic obstructive pulmonary disease with (acute) exacerbation Status: Acute (2) Tobacco abuse ICD Code: Z72.0 - Tobacco abuse Status: Chronic (3) Tachycardia ICD Code: R00.0 - Tachycardia Status: Acute Permanent Comment: Sinus Last Edited By: Joseluis Mancilla on Aug 19, 2013 11:25 (4) Anxiety ICD Code: F41.9 - Anxiety Status: Chronic (5) Hyperthyroidism ICD Code: E05.90 - Thyrotoxicosis, unspecified without thyrotoxic crisis or storm Assessment and Plan (1) COPD exacerbation ICD Code: J44.1 - Chronic obstructive pulmonary disease with (acute) exacerbation Status: Acute Plan: Continue bronchodilators, IV steroids- taper as tolerated, O2 as needed DC tobacco Echo reviewed and normal. Repeat CXR reviewed no change Start Z pack, will add IS, EZpap, Acapella Consult pulmn, appreciate recommendations Add flonase as with nasal congestion benadryl at night as with pruritus and also helps with sleep (2) Tobacco abuse ICD Code: Z72.0 - Tobacco abuse Status: Chronic Plan: Patient counseled to discontinue tobacco (3) Tachycardia, improving ICD Code: R00.0 - Tachycardia Status: Acute Plan: Likely from anxiety versus, bronchodilation. Improved Likely exacerbated by hyperthyroid disorder Permanent Comment: Sinus Last Edited By: Joseluis Mancilla on Aug 19, 2013 11:25 (4) Anxiety ICD Code: F41.9 - Anxiety Status: Chronic Plan: Xanax as needed Continue buspirone Treat thyroid disorder (5) Hyperthyroidism ICD Code: E05.90 - Thyrotoxicosis, unspecified without thyrotoxic crisis or storm Plan: methimazole 5mg daily Discharge Planning Pending improvement, poss DC 1-2 days if cleared by pulm Need O2 at discharge, will do O2 walking test before DC Joyce Desai MD Jun 27, 2017 09:00
[2017-06-27] MEDS: guaiFENesin/DEXTROMETHORPHAN 200 MG/20 MG/10 ML CUP PO PRN (14:03)
[2017-06-27] MEDS: ALPRAZolam 0.5 MG TAB PO PRN (14:03)
[2017-06-27] MEDS: ENOXAPARIN SODIUM 40 MG/0.4 ML SYRINGE SQ SCH (18:31)
[2017-06-28] VITALS: BP 113/83; PULSE 100; RESP 24; TEMP 98.3; O2SAT 94
[2017-06-28 03:17] VITALS: BP 119/73; PULSE 92; RESP 21; TEMP 97.7; O2SAT 95
[2017-06-28] MEDS: guaiFENesin/DEXTROMETHORPHAN 200 MG/20 MG/10 ML CUP PO PRN (03:17)
[2017-06-28] MEDS: CHLORHEXIDINE GLUCONATE 2 % 1 PACK (2 CLOTHS)(taper/protocol) TOPICAL SCH (03:17)
[2017-06-28] MEDS: diphenhydrAMINE HCL 25 MG CAP PO PRN (03:22)
[2017-06-28] MEDS: RESP: ALBUTEROL 2.5 MG/IPRATROPIUM 0.5 MG NEB (PRN) NEB (03:26)
--- NOTE | 2017-06-28 07:49 | HHI.PR ---
Subjective Remarks Feels much better. SOB improved significantly. No wheezing. Sleeping better. No chest pain . Less cough. No n/v/d/c. Feels comfortable to go home today Objective Vitals Vital Signs Date Time Temp Pulse Resp B/P (MAP) Pulse Ox O2 Delivery O2 Flow Rate FiO2 06/28/17 03:17 97.7 92 21 119/73 (88) 95 06/28/17 00:00 98.3 100 24 113/83 (93) 94 06/28/17 00:00 94 Nasal Cannula 3.00 Humidified 06/27/17 20:00 94 Nasal Cannula 3.00 Humidified 06/27/17 20:00 98.6 106 27 129/74 (92) 94 06/27/17 20:00 106 06/27/17 19:33 96 Nasal Cannula 3.00 06/27/17 16:00 97.1 100 29 99/62 (74) 95 06/27/17 16:00 94 Nasal Cannula 3.00 Humidified 06/27/17 12:00 94 Nasal Cannula 3.00 Humidified 06/27/17 12:00 97.1 98 28 111/72 (85) 94 06/27/17 08:00 94 06/27/17 08:00 97.1 98 37 122/74 (90) 93 06/27/17 08:00 92 Nasal Cannula 3.00 Humidified I/O 06/27/17 06/27/17 06/27/17 06/28/17 06/28/17 06/28/17 07:00 15:00 23:00 07:00 15:00 23:00 Intake Total 240 ml 840 ml 240 ml Output Total 1400 ml 2160 ml 1201 ml Balance -1160 ml -1320 ml -961 ml Intake Oral 240 ml 840 ml 240 ml Output Urine Total 1400 ml 2160 ml 1200 ml Stool Total 1 ml Result Diagram: 06/26/17 0422 06/26/17 0422 Imaging Last Impressions Chest X-Ray 06/25/17 0000 Signed Impressions: Service Date/Time: May 21:55 - CONCLUSION: No evidence of acute cardiopulmonary disease. Boogie Ross MD Objective Remarks GENERAL: This is a well-nourished, well-developed patient, appears in nad, sattign well on 2L NC CARDIOVASCULAR: Regular rate and rhythm without murmurs, gallops, or rubs. RESPIRATORY: No SOB, satting well on 2L NC. Lung is clear to auscultation, breath sounds equal bilaterally. No wheezes, rales, or rhonchi. GASTROINTESTINAL: Abdomen soft, non-tender, nondistended. Normal active bowel sounds MUSCULOSKELETAL: Extremities without clubbing, cyanosis, or edema. NEURO: Alert & Oriented x4 to person, place, time, situation. Moves all ext x4 A/P Problem List: (1) COPD exacerbation ICD Code: J44.1 - Chronic obstructive pulmonary disease with (acute) exacerbation Status: Acute (2) Tobacco abuse ICD Code: Z72.0 - Tobacco abuse Status: Chronic (3) Tachycardia ICD Code: R00.0 - Tachycardia Status: Acute Permanent Comment: Sinus Last Edited By: Joseluis Mancilla on Aug 19, 2013 11:25 (4) Anxiety ICD Code: F41.9 - Anxiety Status: Chronic (5) Hyperthyroidism ICD Code: E05.90 - Thyrotoxicosis, unspecified without thyrotoxic crisis or storm Assessment and Plan (1) COPD exacerbation ICD Code: J44.1 - Chronic obstructive pulmonary disease with (acute) exacerbation Status: Acute Plan: Continue bronchodilators, IV steroids- taper as tolerated, O2 as needed Counselled regarding tobacco use, patient will follow up counseling as OP as well. Echo reviewed and normal. Repeat CXR reviewed no change Start Z pack, will add IS, EZpap, Acapella Consult pulm, appreciate recommendations Add flonase as with nasal congestion Benadryl at night as with pruritus and also helps with sleep (2) Tobacco abuse ICD Code: Z72.0 - Tobacco abuse Status: Chronic Plan: Patient counseled to discontinue tobacco. (3) Tachycardia, improving ICD Code: R00.0 - Tachycardia Status: Acute Plan: Likely from anxiety versus, bronchodilation. Improved Likely exacerbated by hyperthyroid disorder (4) Anxiety ICD Code: F41.9 - Anxiety Status: Chronic Plan: Xanax as needed Continue buspirone Treat thyroid disorder (5) Hyperthyroidism ICD Code: E05.90 - Thyrotoxicosis, unspecified without thyrotoxic crisis or storm Plan: methimazole 5mg daily Discharge Planning Pending improvement, poss DC 1-2 days if cleared by pulm Need O2 at discharge Joyce Desai MD Jun 28, 2017 07:49
[2017-06-28 07:50] VITALS: O2SAT 97
[2017-06-28] MEDS: RESP: ALBUTEROL 2.5 MG/IPRATROPIUM 0.5 MG NEB (SCH) NEB (07:50)
[2017-06-28 08:00] VITALS: BP 122/83; PULSE 88; RESP 20; TEMP 98; O2SAT 98
[2017-06-28] MEDS ORDERED: ALPR.5 PO (09:36)
[2017-06-28] MEDS ORDERED: METH5 PO (09:38)
[2017-06-28] MEDS: busPIRone HCL 10 MG TAB PO SCH (09:52)
[2017-06-28] MEDS: methylPREDNISolone SOD SUCC 40 MG/1 ML VIAL IV PUSH SCH (09:52)
[2017-06-28] MEDS: SODIUM CHLORIDE 0.9% FLUSH 10 ML FLUSH IV FLUSH SCH (09:52)
[2017-06-28] MEDS: BUDESONIDE-FORMOTEROL 160/4.5 MCG INHALER INH SCH (09:52)
[2017-06-28] MEDS: FLUTICASONE PROPIONATE 50 MCG/ACT 16 GM NASAL SPRAY NASAL SCH (09:52)
[2017-06-28] MEDS: AZITHROMYCIN 250 MG TAB PO SCH (09:53)
[2017-06-28] MEDS: NYSTATIN SUSP 500,000 U/5 ML CUP SWISH-SWAL SCH (09:53)
[2017-06-28] MEDS: METHIMAZOLE 5 MG TAB PO SCH (09:53)
== END 2017-06-28 10:43 | disposition home health service (06) | DRG 190 ==
LOC: PHED 12:40 → PHEDA 15:07 → PH3A 16:29 → PHICU 06-23 17:32 → PH3A 06-28 03:45
PROVIDERS: ADMIT Hospitalist; ATTEND Hospitalist
DX: J44.1 Chronic obstructive pulmonary disease with (acute) exacerbation (principal); J96.01 Acute respiratory failure with hypoxia; I10 Essential (primary) hypertension; F32.9 Major depressive disorder, single episode, unspecified; F41.9 Anxiety disorder, unspecified; F43.10 Post-traumatic stress disorder, unspecified; F17.210 Nicotine dependence, cigarettes, uncomplicated; E05.90 Thyrotoxicosis, unspecified without thyrotoxic crisis or storm
CPT/HCPCS: 36600; 71010; 80048; 80053; 82805; 83735; 84436; 84443; 84481; 85025; 87641; 87804; 93005; 93306; 94150; 94620; 94640; 94664; 94667; 94668; 96361; 96374; J1650; J2060; J2920; J2930; J7030; J7608

== ENCOUNTER 2017-07-06 17:30 | Emergency (ER) | payer MEDICARE ==
[~2017-07-06] VITALS: Ht 162.6 cm; Wt 70.0 kg
[~2017-07-06 17:30] MED LIST changes: -ALBU.5I NEB; +ALPR.5 PO; -BIAX500T PO; +METH5 PO; +NEBULIZER1 MI1; +OXYGENDME NAS.CANULA; +PRED10PA PO; -PRED50 PO
[2017-07-06 17:33] VITALS: BP 154/89; PULSE 107; RESP 16; TEMP 98.4; O2SAT 99
--- NOTE | 2017-07-06 17:45 | PD ---
HPI Chief Complaint: Injury Time Seen by Provider: 17:41 Travel History International Travel<30 days: No Contact w/Intl Traveler<30days: No Traveled to known affect area: No History of Present Illness HPI 51-year-old female presents to emergency department with complaint of left lateral foot pain after sliding down a step today and injuring her foot. Denies hitting her head or loss of consciousness. Denies neck pain or back pain. Denies chest pain, shortness of breath, abdominal pain, vomiting. Denies left ankle pain or any other extremity pain. Denies paresthesias, loss of sensation, decreased range of motion to the affected extremity. So she cannot ambulate on her left foot. Took 800 mg of ibuprofen prior to arrival to the ER for symptom management. Pain is aggravated with palpation and ambulation. Symptoms are moderate in severity. Has no other medical complaints. Allergies to codeine, penicillin, acetylcysteine. No other modifying factors or associated signs and symptoms. PFSH Past Medical History Hx Anticoagulant Therapy: No Arthritis: No Asthma: Yes Autoimmune Disease: No Blood Disorders: No Anxiety: Yes Depression: No Heart Rhythm Problems: No Cancer: No Cardiovascular Problems: Yes (TACHYCARDIA) High Cholesterol: No Chemotherapy: No Chest Pain: Yes Congestive Heart Failure: No COPD: Yes Cerebrovascular Accident: No Coronary Artery Disease: No Diabetes: No Diminished Hearing: No Endocrine: Yes (hyperthyroid) Gastrointestinal Disorders: No Genitourinary: No Hypertension: Yes Immune Disorder: No Implanted Vascular Access Dvce: No Musculoskeletal: Yes Neurologic: No Psychiatric: Yes (PTSD) Reproductive: Yes (TUBAL LIGATION) Respiratory: Yes Immunizations Current: Yes Myocardial Infarction: No Radiation Therapy: No Sleep Apnea: No Thyroid Disease: Yes (HYPERTHYROID) Menopausal: Yes : 1 Para: 2 Tubal Ligation: Yes Past Surgical History Abdominal Surgery: Yes ( 1997) Cardiac Surgery: No Section: Yes Ear Surgery: No Endocrine Surgery: No Eye Surgery: No Genitourinary Surgery: No Gynecologic Surgery: No ( ) Hysterectomy: No Neurologic Surgery: No Oral Surgery: No Thoracic Surgery: No Other Surgery: Yes (CYST REMOVAL RT BREAST) Social History Alcohol Use: Yes (socially) Tobacco Use: Yes (<1 PPD) Substance Use: No Allergies-Medications (Allergen,Severity, Reaction): Coded Allergies: penicillin G (Verified Allergy, Severe, RASH, 07/06/17) acetylcysteine (Verified Adverse Reaction, Intermediate, Shortness of Breath, 07/06/17) pt experienced SOB, increased heart rate and anxiety with mucomyst resp treatment x 2 codeine (Verified Adverse Reaction, Unknown, NAUSEA, 07/06/17) Reported Meds & Prescriptions Reported Meds & Active Scripts Active Vicodin (Hydrocodone-Acetaminophen) 5-300 Mg Tab 1 Tab PO Q4H PRN Ibuprofen 800 Mg Tab 800 Mg PO Q6HR PRN Tapazole (Methimazole) 5 Mg Tab 5 Mg PO DAILY Xanax (Alprazolam) 0.5 Mg Tab 0.5 Mg PO Q12HR PRN Oxygen (O2) Device Liter GENE.CANULA CONTINUOUS Oxygen Concentrator Portable Gaseous 2 L/min via Nasal Canula Continuous For 99 months Prednisone (21) 10 mg tab Dose Pack (Prednisone) 10 Mg Pack 10 Mg PO DIRECTED Ventolin Hfa 18 GM Inh (Albuterol Sulfate) 90 Mcg/Act Aer 2 Puff INH Q6H PRN Fluticasone Nasal [place] 50 Mcg/Act Naspr 100 Mcg EACH NARE BID 50 mcg/spray Buspirone (Buspirone HCl) 10 Mg Tab 10 Mg PO BID Duoneb (Ipratropium-Albuterol Neb) 0.5-2.5 Mg/3 Ml Neb 1 Nebule INH Q4HR NEB Advair Diskus Inh (Fluticasone-Salmeterol Inh) 250-50 Mcg/Blist Aer 1 Puff INH BID Rinse mouth after use. Nebulizer 1 Mis Mis Ea .ROUTE DIRECTED Diflucan (Fluconazole) 200 Mg Tab 200 Mg PO DAILY Review of Systems Except as stated in HPI: all other systems reviewed are Neg Physical Exam Narrative GENERAL: Well-nourished, well-developed female patient, in no acute distress SKIN: Warm and dry. HEAD: Atraumatic. Normocephalic. EYES: Pupils equal and round. No scleral icterus. No injection or drainage. ENT: Mucosa pink and moist. Airway patent. NECK: Trachea midline. CARDIOVASCULAR: Regular rate. RESPIRATORY: No accessory muscle use. GASTROINTESTINAL: Flat. MUSCULOSKELETAL: Left lateral posterior foot with edema and ecchymosis; with tenderness on palpation; no obvious deformity. Left ankle without tenderness on palpation; without edema, erythema, ecchymosis. Left lower extremity is supple and non-tense with 2+ pedal pulse and sensory intact. No obvious deformities. No clubbing. No cyanosis. No edema. NEUROLOGICAL: Awake and alert. Oriented 3. No obvious cranial nerve deficits. Motor grossly within normal limits. Normal speech. PSYCHIATRIC: Appropriate mood and affect; insight and judgment normal. Data Data Last Documented VS Vital Signs Date Time Temp Pulse Resp B/P (MAP) Pulse Ox O2 Delivery O2 Flow Rate FiO2 07/06/17 17:33 98.4 107 16 154/89 (110) 99 Orders Orders Foot, Complete ([id number]) (07/06/17 17:43) Crutches (07/06/17 17:43) Splint Or Brace Apply/Monitor (07/06/17 18:55) MDM Medical Decision Making Medical Screen Exam Complete: Yes Emergency Medical Condition: Yes Medical Record Reviewed: Yes Differential Diagnosis Foot fracture, foot sprain, foot contusion Narrative Course 51-year-old female with left foot injury after mechanical fall. Patient took 800 mg ibuprofen prior to arrival. Left foot x-ray ordered. 180: Left foot x-ray concludes: Fracture base of the fifth metatarsal that does extend intra-articular. No other fractures are appreciated. Call placed to podiatry. 1845: I spoke with Dr. Mejia, locomotive pipe fitter, and he recommends splint and no weightbearing 2 weeks and to follow-up with him in the office. Posterior short leg ordered. Crutches ordered for support. Patient instructed to nonweight bearing 2 weeks and she verbalized understanding and agreement. Instructed patient to follow up with locomotive pipe fitter of choice or Dr. Mejia within 2 weeks. Patient requested Vicodin for pain management. Vicodin and ibuprofen prescribed for home. Instructed patient to follow up with primary care provider. Patient verbalizes understanding and agreement with treatment plan. Patient is medically cleared and stable for discharge. Discussed reasons to return to the emergency department. Patient agrees with treatment plan. The patients vital signs are stable and the patient is stable for outpatient follow- up and treatment. Patient discharged home, stable and in no acute distress. Diagnosis Primary Impression: Foot fracture, left Qualified Codes: S92.902A - Unspecified fracture of left foot, initial encounter for closed fracture Referrals: Erwin Mejia DPM [facility] Worker Primary Care Physician Patient Instructions: Foot Fracture in Adults (ED), General Instructions Departure Forms: Tests/Procedures, Work Release Special Instructions: Unable to work until you are cleared by primary care provider or locomotive pipe fitter Additional Instructions: Tylenol or ibuprofen as directed and as needed for pain and inflammation Rest, ice, compress, and elevate extremity to decrease pain and inflammation Splint for support; do not remove splint until cleared Crutches for support; no weightbearing 2 weeks until cleared to weight-bear by podiatry Avoid aggravating activity; increase activity as tolerated Follow-up with primary care provider Follow-up with podiatry within 2 weeks Return to the emergency department immediately with worsening of symptoms Med/Other Pt SpecificInfo: Prescription(s) given Scripts Hydrocodone-Acetaminophen (Vicodin) 5-300 Mg Tab 1 TAB PO Q4H Y for PAIN, #20 TAB 0 Refills Prov: Catalina Kearns 07/06/17 Ibuprofen (Ibuprofen) 800 Mg Tab 800 MG PO Q6HR Y for PAIN, #40 TAB 0 Refills Prov: Catalina Kearns 07/06/17 Disposition: 01 DISCHARGE HOME Condition: Stable Catalina Kearns Jul 06, 2017 17:45
--- NOTE | 2017-07-06 17:59 | RADRPT ---
EXAM DATE/TIME: 07/06/2017 17:53 [facility] COMPARISON: No previous studies available for comparison. INDICATIONS : Left foot pain after fall. MEDICAL HISTORY : None. SURGICAL HISTORY : None. ENCOUNTER: Initial ACUITY: 1 day PAIN SCORE: 8/10 LOCATION: Left lateral foot. FINDINGS: Fracture base of the fifth metatarsal that does extend intra-articular. No other fractures are appre ciated. CONCLUSION: Fracture base of the fifth meta tarsal l that extends intra-articular. Boni Alanis MD FACR on July 06, 2017 at 17:57 Board Certified Radiologist. This report was verified electronically.
[2017-07-06] MEDS ORDERED: IBUP800T23 PO (18:00)
[2017-07-06] MEDS ORDERED: HYDR-3111 PO (18:13)
[2017-07-06] MEDS ORDERED: ACETAMINOPHEN/HYDROcodone 325 MG/5 MG TAB PO ONE (19:15)
== END 2017-07-06 19:51 | disposition home or self-care (01) ==
LOC: NEPK 17:30
DX: S92.902A Unspecified fracture of left foot, initial encounter for closed fracture (principal); J45.909 Unspecified asthma, uncomplicated; I10 Essential (primary) hypertension; W10.9XXA Fall (on) (from) unspecified stairs and steps, initial encounter; Z72.0 Tobacco use
CPT/HCPCS: 29515; 73630; 99283; E0113

== ENCOUNTER 2017-09-26 14:00 | Emergency (ER) | payer MEDICARE, MEDICAID ==
[~2017-09-26] VITALS: Ht 162.6 cm; Wt 63.5 kg
[~2017-09-26 14:00] MED LIST changes: +HYDR-3111 PO; +IBUP1TAB7 PO
[2017-09-26 14:02] VITALS: BP 136/62; PULSE 122; RESP 24; TEMP 98.9; O2SAT 96
[2017-09-26] MEDS ORDERED: methylPREDNISolone SOD SUCC 125 MG/2 ML VIAL IV PUSH ONE (14:30)
[2017-09-26] MEDS ORDERED: SODIUM CHLORIDE 0.9% FLUSH 10 ML FLUSH IVF PRN (14:30)
[2017-09-26] MEDS: RESP: ALBUTEROL 2.5 MG/IPRATROPIUM 0.5 MG NEB (SCH) INH ×4 (14:36→16:43)
[2017-09-26 14:45] VITALS: O2SAT 95
--- NOTE | 2017-09-26 14:48 | PD ---
HPI Chief Complaint: Respiratory Symptoms Time Seen by Provider: 14:18 Travel History International Travel<30 days: No Contact w/Intl Traveler<30days: No Traveled to known affect area: No History of Present Illness HPI 52-year-old female that presents to the ED for evaluation of cold-like symptoms and possible COPD exacerbation. Per patient she's been using her inhalers and nebulizer machine more often. Per patient she for the past week has been having cold-like symptoms and she has sick contacts at home including a person diagnosed with the flu. She states that today the symptoms are more severe which is what prompted evaluation. She states having some chest pain but states that this feels similar to her previous COPD exacerbations. She denies ever having to be intubated. She has not seen her doctor for this. She states that the pain on the chest is 5 out of 10. She states having a lot of congestion and runny nose. No sore throat. Cough is productive. She does have allergies to penicillin. She also states that she's been having symptoms of numbness and tingling to her arms and legs starting on for some months. Per patient he comes and goes. No old the time. Per patient she is getting a little concerned because now she is not having the numbness and tingling, more like pain initially following the same area where she had the numbness and tingling before. She denies any history of diabetes or neuropathy. Per patient she commented this to her doctor or . did not seem to take notice per patient. PFSH Past Medical History Hx Anticoagulant Therapy: No Arthritis: No Asthma: Yes Autoimmune Disease: No Blood Disorders: No Anxiety: Yes Depression: No Heart Rhythm Problems: No Cancer: No Cardiovascular Problems: Yes (HTN) High Cholesterol: No Chemotherapy: No Chest Pain: Yes Congestive Heart Failure: No COPD: Yes Cerebrovascular Accident: No Coronary Artery Disease: No Diabetes: No Diminished Hearing: No Endocrine: Yes (hyperthyroid) Gastrointestinal Disorders: No Genitourinary: No Hypertension: Yes Immune Disorder: No Implanted Vascular Access Dvce: No Musculoskeletal: Yes Neurologic: No Psychiatric: Yes (PTSD) Reproductive: Yes (TUBAL LIGATION) Respiratory: Yes (COPD) Immunizations Current: Yes Myocardial Infarction: No Radiation Therapy: No Sleep Apnea: No Thyroid Disease: Yes (HYPERTHYROID) Influenza Vaccination: No ?: Not Menopausal: Yes : 1 Para: 2 Tubal Ligation: Yes Past Surgical History Abdominal Surgery: Yes ( 1997) Cardiac Surgery: No Section: Yes Ear Surgery: No Endocrine Surgery: No Eye Surgery: No Genitourinary Surgery: No Hysterectomy: No Neurologic Surgery: No Oral Surgery: No Thoracic Surgery: No Other Surgery: Yes (CYST REMOVAL RT BREAST) Social History Alcohol Use: Yes (socially) Tobacco Use: Yes (<1 PPD) Substance Use: No Allergies-Medications (Allergen,Severity, Reaction): Coded Allergies: penicillin G (Verified Allergy, Severe, RASH, 09/26/17) acetylcysteine (Verified Adverse Reaction, Intermediate, Shortness of Breath, 09/26/17) pt experienced SOB, increased heart rate and anxiety with mucomyst resp treatment x 2 codeine (Verified Adverse Reaction, Unknown, NAUSEA, 09/26/17) Reported Meds & Prescriptions Reported Meds & Active Scripts Active Albuterol Neb (Albuterol Sulfate) 2.5 Mg/3 Ml Neb 2.5 Mg NEB Q4HR NEB PRN Azithromycin 250 Mg Tab 250 Mg PO DIRECTED Take 2 tabs (500 mg) on day 1 then 1 tab daily x 4 days. Prednisone 20 Mg Tab 20 Mg PO BID 5 Days Proair Hfa 8.5 GM Inh (Albuterol Sulfate) 90 Mcg/Act Aer 2 Puff INH Q4-6H PRN 108 mcg/actuation Ibuprofen 800 Mg Tab 800 Mg PO Q6HR PRN Oxygen (O2) Device Liter GENE.CANULA CONTINUOUS Oxygen Concentrator Portable Gaseous 2 L/min via Nasal Canula Continuous For 99 months Ventolin Hfa 18 GM Inh (Albuterol Sulfate) 90 Mcg/Act Aer 2 Puff INH Q6H PRN Fluticasone Nasal [place] 50 Mcg/Act Naspr 100 Mcg EACH NARE BID 50 mcg/spray Buspirone (Buspirone HCl) 10 Mg Tab 10 Mg PO BID Duoneb (Ipratropium-Albuterol Neb) 0.5-2.5 Mg/3 Ml Neb 1 Nebule INH Q4HR NEB Advair Diskus Inh (Fluticasone-Salmeterol Inh) 250-50 Mcg/Blist Aer 1 Puff INH BID Rinse mouth after use. Nebulizer 1 Mis Mis Ea .ROUTE DIRECTED Review of Systems Except as stated in HPI: all other systems reviewed are Neg Physical Exam Narrative GENERAL: Well-nourished, well-developed patient in no apparent distress. SKIN: Warm and dry. HEAD: Atraumatic. Normocephalic. EYES: Pupils equal and round reactive to light and accommodation. No scleral icterus. No injection or drainage. ENT: No nasal bleeding or discharge. Mucous membranes pink and moist. TMs are clear with no sign of infection or perforation. No mastoid tenderness. Ear canals are intact bilaterally. No lymphadenopathy. Nostril mucosa is red and moist with clear mucus noted. No sinus tenderness to palpation noted. Tonsils are not enlarged or swollen. No ulvua Deviation. Tongue is midline. NECK: Trachea midline. No JVD. No meningeal signs noted CARDIOVASCULAR: Regular rate and rhythm. RESPIRATORY: No accessory muscle use. Wheezings heard in all lung portillo. Breath sounds equal bilaterally. GASTROINTESTINAL: Abdomen soft, non-tender, nondistended. Hepatic and splenic margins not palpable. MUSCULOSKELETAL: Extremities without clubbing, cyanosis, or edema. No obvious deformities. Full range of motion of the upper and lower extremities bilaterally. 2+ pulses bilaterally. NEUROLOGICAL: Awake and alert. No obvious cranial nerve deficits. Motor grossly within normal limits. Five out of 5 muscle strength in the arms and legs. Normal speech. PSYCHIATRIC: Appropriate mood and affect; insight and judgment normal. Data Data Last Documented VS Vital Signs Date Time Temp Pulse Resp B/P (MAP) Pulse Ox O2 Delivery O2 Flow Rate FiO2 09/26/17 16:27 91 Room Air 09/26/17 14:44 118 26 09/26/17 14:02 98.9 Orders Orders Basic Metabolic Panel (Bmp) (09/26/17 14:29) Complete Blood Count With Diff (09/26/17 14:29) Chest, Single Ap (09/26/17 14:29) Ecg Monitoring (09/26/17 14:29) Iv Access Insert/Monitor (09/26/17 14:29) Oximetry (09/26/17 14:29) Methylprednisolone So Succ Inj (Solumedr (09/26/17 14:30) Albuterol-Ipratropium Neb (Duoneb Neb) (09/26/17 14:30) Sodium Chloride 0.9% Flush (Ns Flush) (09/26/17 14:30) Electrocardiogram (09/26/17 ) Troponin I (09/26/17 14:29) Ckmb (Isoenzyme) Profile (09/26/17 14:29) Magnesium (Mg) (09/26/17 14:29) Influenzae A/B Antigen (09/26/17 14:29) Azithromycin Inj (Zithromax Inj) (09/26/17 16:45) Albuterol-Ipratropium Neb (Duoneb Neb) (09/26/17 16:45) Ed Discharge Order (09/26/17 16:54) Labs Laboratory Tests Test 09/26/17 14:35 White Blood Count 10.7 TH/MM3 Red Blood Count 4.45 MIL/MM3 Hemoglobin 12.7 GM/DL Hematocrit 38.5 % Mean Corpuscular Volume 86.5 FL Mean Corpuscular Hemoglobin 28.5 PG Mean Corpuscular Hemoglobin Concent 33.0 % Red Cell Distribution Width 13.5 % Platelet Count 336 TH/MM3 Mean Platelet Volume 8.0 FL Neutrophils (%) (Auto) 67.2 % Lymphocytes (%) (Auto) 18.9 % Monocytes (%) (Auto) 10.8 % Eosinophils (%) (Auto) 2.4 % Basophils (%) (Auto) 0.7 % Neutrophils # (Auto) 7.2 TH/MM3 Lymphocytes # (Auto) 2.0 TH/MM3 Monocytes # (Auto) 1.2 TH/MM3 Eosinophils # (Auto) 0.3 TH/MM3 Basophils # (Auto) 0.1 TH/MM3 CBC Comment DIFF FINAL Differential Comment Blood Urea Nitrogen 6 MG/DL Creatinine 0.50 MG/DL Random Glucose 146 MG/DL Calcium Level 9.0 MG/DL Magnesium Level 1.5 MG/DL Sodium Level 140 MEQ/L Potassium Level 3.7 MEQ/L Chloride Level 109 MEQ/L Carbon Dioxide Level 21.0 MEQ/L Anion Gap 10 MEQ/L Estimat Glomerular Filtration Rate 130 ML/MIN Total Creatine Kinase 42 U/L Troponin I LESS THAN 0.02 NG/ML MDM Medical Decision Making Medical Screen Exam Complete: Yes Emergency Medical Condition: Yes Medical Record Reviewed: Yes Interpretation(s) CBC & BMP Diagram 09/26/17 14:35 Calcium Level 9.0, Magnesium Level 1.5 troponin and CKMB negative EKG shows sinus tachycardia with no sign of acute ischemia or arrhythmia read by me and attending. Differential Diagnosis COPD exacerbation versus COPD versus bronchitis versus pneumonia versus viral illness versus normal exam versus chest pain Narrative Course 52-year-old female that presents to the ED for evaluation of shortness of breath. Patient was properly examined and was found to have signs and symptoms consistent appears to be likely COPD exacerbation versus infectious etiology. Labs and imaging were ordered. Labs and imaging showed what appears to be likely COPD exacerbation. We reassessed the patient still feels somewhat lousy. She still has wheezing on exam. I had the patient walk around and check her O2 and he came down to 91. I did offer the patient admission for observation for further evaluation and treatment of the COPD exacerbation. Patient prefers to go home. At this time I think this is reasonable. At this time patient will be given azithromycin. Given 3 additional DuoNeb. Patient again prefers to go home. She was told that if anything worsens she is to come back to the ED. See ED if worsening symptoms. Follow with PCP. Diagnosis Primary Impression: COPD with acute exacerbation Patient Instructions: General Instructions Additional Instructions: Motrin and Tylenol for pain and fever. Drink plenty of fluids. Follow-up with PCP. See ED for worsening symptoms. Med/Other Pt SpecificInfo: Prescription(s) given Scripts Albuterol Neb (Albuterol Neb) 2.5 Mg/3 Ml Neb 2.5 MG NEB Q4HR NEB Y for SHORTNESS OF BREATH, #60 NEBULE 0 Refills Prov: Bashir Dickson MD 09/26/17 Azithromycin (Azithromycin) 250 Mg Tab 250 MG PO DIRECTED for Infection, #6 TAB 0 Refills Take 2 tabs (500 mg) on day 1 then 1 tab daily x 4 days. Prov: Bashir Dickson MD 09/26/17 Prednisone (Prednisone) 20 Mg Tab 20 MG PO BID for 5 Days, #10 TAB 0 Refills Prov: Bashir Dickson MD 09/26/17 Albuterol 8.5 GM Inh (Proair Hfa 8.5 GM Inh) 90 Mcg/Act Aer 2 PUFF INH Q4-6H Y for SHORTNESS OF BREATH, #1 INHALER 0 Refills 108 mcg/actuation Prov: Bashir Dickson MD 09/26/17 Disposition: 01 DISCHARGE HOME Condition: Stable Dwight Noel Sep 26, 2017 14:48
[2017-09-26 15:00] VITALS: BP 127/70; PULSE 116; RESP 22; O2SAT 95
[2017-09-26 15:36] LABS: AUTOMATED NEUTROPHIL # 7.2 TH/MM3 (1.8-7.7); BASOPHIL # 0.1 TH/MM3 (0-0.2); BASOPHIL % 0.7 % (0.0-2.0); EOSINOPHIL # 0.3 TH/MM3 (0-0.4); EOSINOPHIL % 2.4 % (0.0-4.0); HEMATOCRIT 38.5 % (35.0-46.0); HEMOGLOBIN 12.7 GM/DL (11.6-15.3); LYMPH % 18.9 % (9.0-44.0); MEAN CELL VOLUME 86.5 FL (80.0-100.0); MEAN CORPUSCULAR HEMOGLOBIN 28.5 PG (27.0-34.0); MONO % 10.8 % (0.0-8.0); MONOCYTE # 1.2 TH/MM3 (0-0.9); NEUT % 67.2 % (16.0-70.0); PLATELET COUNT 336 TH/MM3 (150-450); RED BLOOD COUNT 4.45 MIL/MM3 (4.00-5.30); RED CELL DISTRIBUTION WIDTH 13.5 % (11.6-17.2); WHITE BLOOD COUNT 10.7 TH/MM3 (4.0-11.0)
[2017-09-26 15:46] LABS: BLOOD UREA NITROGEN 6 MG/DL (7-18); CHLORIDE 109 MEQ/L (98-107); GLOMERULAR FILTRATION RATE 130 ML/MIN (>89); GLUCOSE,RANDOM 146 MG/DL (74-106); MAGNESIUM 1.5 MG/DL (1.5-2.5); SODIUM (NA) 140 MEQ/L (136-145)
[2017-09-26 15:50] LABS: TROPONIN I LESS THAN 0.02 NG/ML (0.02-0.05)
--- NOTE | 2017-09-26 15:52 | RADRPT ---
EXAM DATE/TIME: 09/26/2017 14:41 [facility] COMPARISON: CHEST SINGLE AP, June 25, 2017, 21:55. INDICATIONS : Patient complains of wheezing and shortness of breath. MEDICAL HISTORY : Chronic obstructive pulmonary disease. SURGICAL HISTORY : None. ENCOUNTER: Initial ACUITY: 1 day PAIN SCORE: 0/10 LOCATION: chest FINDINGS: The lungs are clear without infiltrate, nodule, or mass. There is no appreciable pleural effusion fo r technique. Heart and mediastinum are unremarkable. CONCLUSION: No acute cardiopulmonary disease. Alphonso Mcneal MD on September 26, 2017 at 15:50 Board Certified Radiologist. This report was verified electronically.
[2017-09-26 16:27] VITALS: O2SAT 91
[2017-09-26] MEDS ORDERED: AZITHROMYCIN INJ 500 MG in SODIUM CHLOR 0.9% 250 ML INJ 250 ML IV ONE (16:45)
[2017-09-26] MEDS ORDERED: ALBUAER3 INH (16:53)
[2017-09-26] MEDS ORDERED: ALBU0.08 NEB (16:53)
[2017-09-26] MEDS ORDERED: AZIT250T3 PO (16:53)
[2017-09-26] MEDS ORDERED: PRED20 PO (16:53)
[2017-09-26] MEDS ORDERED: AZITHROMYCIN 250 MG TAB PO ONE (17:30)
[2017-09-26 17:45] VITALS: BP 141/76
--- NOTE | 2017-09-26 22:02 | EKG ---
Date Performed: 09/26/2017 Time Performed: 14:51:27 PTAGE: 52 years EKG: SINUS TACHYCARDIA ABNORMAL RHYTHM ECG PREVIOUS TRACING : 06/21/2017 13.20 Compared to prior tracing no significant change DOCTOR: Chuck Dominguez Interpretating Date/Time 09/26/2017 22:01:00
== END 2017-09-26 17:55 | disposition home or self-care (01) ==
LOC: NEPE 14:00
DX: J44.1 Chronic obstructive pulmonary disease with (acute) exacerbation (principal); F17.200 Nicotine dependence, unspecified, uncomplicated; Z79.899 Other long term (current) drug therapy
CPT/HCPCS: 71010; 80048; 82550; 83735; 84484; 85025; 87804; 93005; 94640; 94664; 96374; 99285; J0456; J2930; J7050

== ENCOUNTER 2017-10-25 01:54 | Inpatient (IN) | payer MEDICARE, MEDICAID ==
[~2017-10-25] VITALS: Ht 162.6 cm; Wt 64.5 kg
[2017-10-25] VITALS (18 sets, daily range): BP systolic 105–136; BP diastolic 62–79; PULSE 109–136; RESP 20–37; TEMP 98.2–98.8; O2SAT 92–99
[~2017-10-25 01:54] MED LIST changes: +ALBU0.08 NEB; +ALBUAER3 INH; -ALPR.5 PO; +AZIT250T3 PO; -DIFL200T PO; -HYDR-3111 PO; -METH5 PO; -PRED10PA PO; +PRED20 PO
[2017-10-25] MEDS ORDERED: OSEL75 PO (02:13)
[2017-10-25] MEDS ORDERED: PRED10PA PO (02:13)
[2017-10-25] MEDS ORDERED: DOXY100C PO (02:13)
[2017-10-25] MEDS ORDERED: LORazepam 2 MG/ML VIAL IV PUSH ONE ×2 (02:15→10:30)
[2017-10-25] MEDS ORDERED: methylPREDNISolone SOD SUCC 125 MG/2 ML VIAL IV PUSH ONE (02:15)
[2017-10-25] MEDS ORDERED: SODIUM CHLORIDE 0.9% FLUSH 10 ML FLUSH IVF PRN (02:15)
--- NOTE | 2017-10-25 02:15 | PD ---
HPI Chief Complaint: Respiratory Distress Time Seen by Provider: 02:11 Travel History International Travel<30 days: No Contact w/Intl Traveler<30days: No Traveled to known affect area: No History of Present Illness HPI 52-year-old female smoker with history of COPD, seen several days ago for COPD exacerbation and given doxycycline, steroids, nebulizers, returns today for worsening and shortness of breath, wheezing, coughing, nausea. She states is not getting any better. She states that her mother had been diagnosed with influenza. She denies other issues. She had been given about 5 nebulizers at this point without significant improvement and had taken 60 of prednisone today. Modifying Factors: None Associated Signs & Symptoms: Coughing, shortness of breath, nausea Risk Factors: COPD, seen recently for same several days ago PFSH Past Medical History Hx Anticoagulant Therapy: No Arthritis: No Asthma: Yes Autoimmune Disease: No Blood Disorders: No Anxiety: Yes Depression: No Heart Rhythm Problems: No Cancer: No Cardiovascular Problems: Yes (HTN) High Cholesterol: No Chemotherapy: No Chest Pain: Yes Congestive Heart Failure: No COPD: Yes Cerebrovascular Accident: No Coronary Artery Disease: No Diabetes: No Diminished Hearing: No Endocrine: Yes (hyperthyroid) Gastrointestinal Disorders: No Genitourinary: No Hypertension: Yes Immune Disorder: No Implanted Vascular Access Dvce: No Musculoskeletal: Yes Neurologic: No Psychiatric: Yes (PTSD) Reproductive: Yes (TUBAL LIGATION) Respiratory: Yes Immunizations Current: Yes Myocardial Infarction: No Radiation Therapy: No Sleep Apnea: No Thyroid Disease: Yes (HYPERTHYROID) Menopausal: Yes : 1 Para: 2 Tubal Ligation: Yes Past Surgical History Abdominal Surgery: Yes ( 1997) Cardiac Surgery: No Section: Yes Ear Surgery: No Endocrine Surgery: No Eye Surgery: No Genitourinary Surgery: No Hysterectomy: No Neurologic Surgery: No Oral Surgery: No Thoracic Surgery: No Other Surgery: Yes (CYST REMOVAL RT BREAST) Social History Alcohol Use: Yes (socially) Tobacco Use: Yes (<1 PPD) Substance Use: No Allergies-Medications (Allergen,Severity, Reaction): Coded Allergies: penicillin G (Verified Allergy, Severe, RASH, 10/25/17) acetylcysteine (Verified Adverse Reaction, Intermediate, Shortness of Breath, 10/25/17) pt experienced SOB, increased heart rate and anxiety with mucomyst resp treatment x 2 codeine (Verified Adverse Reaction, Unknown, NAUSEA, 1/28/18) Reported Meds & Prescriptions Reported Meds & Active Scripts Active Fluticasone Nasal [place] 50 Mcg/Act Naspr 100 Mcg EACH NARE BID 50 mcg/spray Albuterol Neb (Albuterol Sulfate) 2.5 Mg/3 Ml Neb 2.5 Mg NEB Q4HR NEB PRN Prednisone 20 Mg Tab 20 Mg PO BID 5 Days Proair Hfa 8.5 GM Inh (Albuterol Sulfate) 90 Mcg/Act Aer 2 Puff INH Q4-6H PRN 108 mcg/actuation Ibuprofen 800 Mg Tab 800 Mg PO Q6HR PRN Oxygen (O2) Device Liter GENE.CANULA CONTINUOUS Oxygen Concentrator Portable Gaseous 2 L/min via Nasal Can[place] Continuous For 99 months Ventolin Hfa 18 GM Inh (Albuterol Sulfate) 90 Mcg/Act Aer 2 Puff INH Q6H PRN Buspirone (Buspirone HCl) 10 Mg Tab 10 Mg PO BID Duoneb (Ipratropium-Albuterol Neb) 0.5-2.5 Mg/3 Ml Neb 1 Nebule INH Q4HR NEB Advair Diskus Inh (Fluticasone-Salmeterol Inh) 250-50 Mcg/Blist Aer 1 Puff INH BID Rinse mouth after use. Nebulizer 1 Mis Mis Ea .ROUTE DIRECTED Reported Prednisone (21) 10 mg tab Dose Pack (Prednisone) 10 Mg Pack 10 Mg PO DIRECTED Doxycycline Hyclate 100 Mg Cap 100 Mg PO BID Tamiflu (Oseltamivir Phosphate) 75 Mg Cap 75 Mg PO DAILY Review of Systems Except as stated in HPI: all other systems reviewed are Neg Physical Exam Narrative GENERAL: Well-developed middle age white female patient currently and moderate respiratory distress. Awake and oriented 3. SKIN: Focused skin assessment warm/dry. HEAD: Atraumatic. Normocephalic. EYES: Pupils equal and round. No scleral icterus. No injection or drainage. ENT: No nasal bleeding or discharge. Mucous membranes pink and moist. NECK: Trachea midline. No JVD. CARDIOVASCULAR: Regular rate and rhythm. No murmur appreciated. RESPIRATORY: Moderate accessory muscle use. Decreased breath sounds throughout with mild wheezing. Breath sounds equal bilaterally. GASTROINTESTINAL: Abdomen soft, non-tender, nondistended. Hepatic and splenic margins not palpable. MUSCULOSKELETAL: No obvious deformities. No clubbing. No cyanosis. No edema. NEUROLOGICAL: Awake and alert. No obvious cranial nerve deficits. Motor grossly within normal limits. Difficulty with speech due to respiratory distress, gets one word at a time. PSYCHIATRIC: Appropriate mood and affect; insight and judgment normal. Data Data Last Documented VS Vital Signs Date Time Temp Pulse Resp B/P (MAP) Pulse Ox O2 Delivery O2 Flow Rate FiO2 10/25/17 02:14 136 24 95 Nasal Cannula 6.00 10/25/17 02:06 98.4 134/79 (97) Orders Orders Complete Blood Count With Diff (10/25/17 02:11) Basic Metabolic Panel (Bmp) (10/25/17 02:11) B-Type Natriuretic Peptide (10/25/17 02:11) Influenzae A/B Antigen (10/25/17 02:11) Iv Access Insert/Monitor (10/25/17 02:11) Ecg Monitoring (10/25/17 02:11) Oximetry (10/25/17 02:11) Oxygen Administration (10/25/17 02:11) Chest, Single Ap (10/25/17 02:11) Sodium Chloride 0.9% Flush (Ns Flush) (10/25/17 02:15) Methylprednisolone So Succ Inj (Solumedr (10/25/17 02:15) Albuterol-Ipratropium Neb (Duoneb Neb) (10/25/17 02:15) Lorazepam Inj (Ativan Inj) (10/25/17 02:15) Admit Order (Ed Use Only) (10/25/17 03:03) Labs Laboratory Tests Test 10/25/17 02:25 White Blood Count 17.2 TH/MM3 Red Blood Count 4.79 MIL/MM3 Hemoglobin 13.7 GM/DL Hematocrit 40.9 % Mean Corpuscular Volume 85.5 FL Mean Corpuscular Hemoglobin 28.6 PG Mean Corpuscular Hemoglobin Concent 33.4 % Red Cell Distribution Width 13.6 % Platelet Count 466 TH/MM3 Mean Platelet Volume 7.9 FL Neutrophils (%) (Auto) 76.1 % Lymphocytes (%) (Auto) 16.8 % Monocytes (%) (Auto) 7.0 % Eosinophils (%) (Auto) 0.0 % Basophils (%) (Auto) 0.1 % Neutrophils # (Auto) 13.1 TH/MM3 Lymphocytes # (Auto) 2.9 TH/MM3 Monocytes # (Auto) 1.2 TH/MM3 Eosinophils # (Auto) 0.0 TH/MM3 Basophils # (Auto) 0.0 TH/MM3 CBC Comment DIFF FINAL Differential Comment Blood Urea Nitrogen 13 MG/DL Creatinine 0.60 MG/DL Random Glucose 135 MG/DL Calcium Level 9.5 MG/DL Sodium Level 144 MEQ/L Potassium Level 3.9 MEQ/L Chloride Level 110 MEQ/L Carbon Dioxide Level 26.2 MEQ/L Anion Gap 8 MEQ/L Estimat Glomerular Filtration Rate 105 ML/MIN MDM Medical Decision Making Medical Screen Exam Complete: Yes Emergency Medical Condition: Yes Medical Record Reviewed: Yes Interpretation(s) Laboratory Tests Test 10/25/17 02:25 White Blood Count 17.2 TH/MM3 (4.0-11.0) Platelet Count 466 TH/MM3 (150-450) Neutrophils (%) (Auto) 76.1 % (16.0-70.0) Neutrophils # (Auto) 13.1 TH/MM3 (1.8-7.7) Monocytes # (Auto) 1.2 TH/MM3 (0-0.9) Random Glucose 135 MG/DL (74-106) Chloride Level 110 MEQ/L (98-107) Differential Diagnosis COPD exacerbation versus pneumonia versus bronchitis Narrative Course Chest x-ray did not show any signs of acute processes. Patient was given additional doses of Solu-Medrol and nebulizers in the ER without significant improvement in breathing. At this point, there is concern over the fact that she is not doing well than outpatient and my plan would be to admit her for further treatment of COPD exacerbation. She is influenza-negative. Case was discussed with Dr. Cornelius for admission. Diagnosis Primary Impression: COPD with acute exacerbation Admitting Information Admitting Physician Requests: Admit Mahnaz Lipscomb MD Oct 25, 2017 02:15
[2017-10-25] MEDS: RESP: ALBUTEROL 2.5 MG/IPRATROPIUM 0.5 MG NEB (SCH) INH ×2 (02:20→02:30)
--- NOTE | 2017-10-25 02:37 | RADRPT ---
EXAM DATE/TIME: 10/25/2017 02:29 [facility] COMPARISON: CHEST SINGLE AP, September 26, 2017, 14:41. INDICATIONS : Shortness of breath. MEDICAL HISTORY : Chronic obstructive pulmonary disease. SURGICAL HISTORY : None. ENCOUNTER: Initial ACUITY: 1 day PAIN SCORE: 0/10 LOCATION: Bilateral chest FINDINGS: A single view of the chest demonstrates the lungs to be symmetrically aerated without evidence of mas s, infiltrate or effusion. The cardiomediastinal contours are unremarkable. Osseous structures are intact. CONCLUSION: No acute disease. Boogie Carlos MD on October 25, 2017 at 2:34 Board Certified Radiologist. This report was verified electronically.
[2017-10-25 02:38] LABS: AUTOMATED NEUTROPHIL # 13.1 TH/MM3 (1.8-7.7); BASOPHIL % 0.1 % (0.0-2.0); HEMATOCRIT 40.9 % (35.0-46.0); HEMOGLOBIN 13.7 GM/DL (11.6-15.3); LYMPH % 16.8 % (9.0-44.0); LYMPHOCYTE # 2.9 TH/MM3 (1.0-4.8); MEAN CELL VOLUME 85.5 FL (80.0-100.0); MEAN CORPUSCULAR HEMOGLOBIN 28.6 PG (27.0-34.0); MEAN CORPUSCULAR HGB CONC 33.4 % (32.0-36.0); MEAN PLATELET VOLUME 7.9 FL (7.0-11.0); MONOCYTE # 1.2 TH/MM3 (0-0.9); NEUT % 76.1 % (16.0-70.0); PLATELET COUNT 466 TH/MM3 (150-450); RED BLOOD COUNT 4.79 MIL/MM3 (4.00-5.30); RED CELL DISTRIBUTION WIDTH 13.6 % (11.6-17.2); WHITE BLOOD COUNT 17.2 TH/MM3 (4.0-11.0)
[2017-10-25 02:55] LABS: BICARBONATE 26.2 MEQ/L (21.0-32.0); CALCIUM 9.5 MG/DL (8.5-10.1); CREATININE 0.6 MG/DL (0.50-1.00)
[2017-10-25] MEDS ORDERED: ACETAMINOPHEN 325 MG TAB PO PRN (03:15)
[2017-10-25] MEDS ORDERED: BISACODYL 10 MG SUPP RECTAL PRN (03:15)
[2017-10-25] MEDS ORDERED: LACTULOSE SYRUP 20 GM/30 ML CUP PO PRN (03:15)
[2017-10-25] MEDS ORDERED: MAGNESIUM HYDROXIDE SUSP 30 ML CUP PO PRN (03:15)
[2017-10-25] MEDS ORDERED: ONDANSETRON HCL 4 MG/2 ML VIAL IVP PRN (03:15)
[2017-10-25] MEDS ORDERED: MORPHINE SULFATE 2 MG/ML INJ IV PUSH PRN (03:15)
[2017-10-25] MEDS ORDERED: SENNOSIDES 8.6 MG TAB PO PRN (03:15)
[2017-10-25] MEDS ORDERED: SODIUM CHLORIDE 0.9% FLUSH 10 ML FLUSH IV FLUSH PRN (03:15)
--- NOTE | 2017-10-25 03:42 | HHI.HP ---
HPI Service [facility] Primary Care Physician No Primary Care Physician Admission Diagnosis COPD exacerbation/failed outpatient therapy/tachycardia Diagnoses: (1) COPD (chronic obstructive pulmonary disease) Diagnosis: Principal (2) Failure of outpatient treatment Diagnosis: Principal (3) Tobacco abuse Diagnosis: Principal (4) Leukocytosis Diagnosis: Principal Travel History International Travel<30 Days: No Contact w/Intl Traveler <30 Da: No Traveled to Known Affected Are: No History of Present Illness This is a 52-year-old female with a PMH of Anxiety, HTN, COPD and Tobacco Abuse presented to the ER with complaints of SOB and wheezing for approx 3-4 days. Seen at Urgent Care 2 days ago and started on Doxycycline, Prednisone, Nebulizers and Tamiflu as pt's Mother found to be Flu positive. States she's been taking medications as prescribed w/ no improvement. Denies fever, chills or cough. SOB severe w/ significant respiratory distress. S/p DuoNeb x3 via EMS and DuoNeb x2 in ER in addition to Solu-Medrol w/ persistent SOB and increased work of breathing. O2 sat 95% on 6L NC. BP 134/79, HR 135, Afebrile. W WBC 17.2. Chemistry essentially unremarkable. CXR with no acute findings. Flu negative. Review of Systems Except as stated in HPI: all other systems reviewed are Neg ROS: 14 point review of systems otherwise negative. Past Family Social History Past Medical History PMH: Anxiety, HTN, COPD and Tobacco Abuse Past Surgical History PAST SURGICAL HISTORY: , Breast Cyst Removal Allergies: Coded Allergies: penicillin G (Verified Allergy, Severe, RASH, 10/25/17) acetylcysteine (Verified Adverse Reaction, Intermediate, Shortness of Breath, 10/25/17) pt experienced SOB, increased heart rate and anxiety with mucomyst resp treatment x 2 codeine (Verified Adverse Reaction, Unknown, NAUSEA, 10/25/17) Family History PAST FAMILY HISTORY: Reviewed. No h/o DM or CAD Social History PAST SOCIAL HISTORY: Occasional alcohol. Smokes 1ppd. Negative for drugs. Physical Exam Vital Signs Vital Signs Date Time Temp Pulse Resp B/P (MAP) Pulse Ox O2 Delivery O2 Flow Rate FiO2 10/25/17 02:20 96 Nasal Cannula 6.00 10/25/17 02:14 136 24 95 Nasal Cannula 6.00 10/25/17 02:14 24 95 Nasal Cannula 6.00 10/25/17 02:14 95 Nasal Cannula 6.00 10/25/17 02:06 98.4 135 35 134/79 (97) 97 Physical Exam PE: GENERAL: Pleasant middle-aged white female in moderate distress due to SOB, + dyspnea w/ speech HEENT: PERRLA, EOMI. No scleral icterus or conjunctival pallor. No lid lag or facial droop. CARDIOVASCULAR: Regular rate and rhythm. No obvious murmurs to auscultation. No chest tenderness to palpation. RESPIRATORY: No obvious rhonchi, +wheezing. Clear to auscultation. Decreased air movement bilaterally. GASTROINTESTINAL: Abdomen soft, non-tender, nondistended. BS normal. MUSCULOSKELETAL: Extremities without clubbing, cyanosis, or edema. No obvious deformities. NEUROLOGICAL: Awake, alert and oriented x4. No focal neurologic deficits. Moving both upper and lower extremities spontaneously. Laboratory Laboratory Tests Test 10/25/17 02:25 White Blood Count 17.2 Red Blood Count 4.79 Hemoglobin 13.7 Hematocrit 40.9 Mean Corpuscular Volume 85.5 Mean Corpuscular Hemoglobin 28.6 Mean Corpuscular Hemoglobin Concent 33.4 Red Cell Distribution Width 13.6 Platelet Count 466 Mean Platelet Volume 7.9 Neutrophils (%) (Auto) 76.1 Lymphocytes (%) (Auto) 16.8 Monocytes (%) (Auto) 7.0 Eosinophils (%) (Auto) 0.0 Basophils (%) (Auto) 0.1 Neutrophils # (Auto) 13.1 Lymphocytes # (Auto) 2.9 Monocytes # (Auto) 1.2 Eosinophils # (Auto) 0.0 Basophils # (Auto) 0.0 CBC Comment DIFF FINAL Differential Comment Blood Urea Nitrogen 13 Creatinine 0.60 Random Glucose 135 Calcium Level 9.5 Sodium Level 144 Potassium Level 3.9 Chloride Level 110 Carbon Dioxide Level 26.2 Anion Gap 8 Estimat Glomerular Filtration Rate 105 Date/Time Source Procedure Growth Status 10/25/17 02:25 Nasal Washing Influenza Types A,B Antigen (JENNIFER) - Final NEGATIVE FOR FLU A AND B ANTIGEN.... Complete Result Diagram: 1/28/18 0225 1/28/18 0225 Caprini VTE Risk Assessment Caprini VTE Risk Assessment: No/Low Risk (score <= 1) Caprini Risk Assessment Model Point Value = 1 Point Value = 2 Point Value = 3 Point Value = 5 Age 41-60 Minor surgery BMI > 25 kg/m2 Swollen legs Varicose veins or History of unexplained or recurrent spontaneous Oral contraceptives or hormone replacement Sepsis (< 1 month) Serious lung disease, including pneumonia (< 1 month) Abnormal pulmonary function Acute myocardial infarction Congestive heart failure (< 1 month) History of inflammatory bowel disease Medical patient at bed rest Age 61-74 Arthroscopic surgery Major open surgery (> 45 min) Laparoscopic surgery (> 45 min) Malignancy Confined to bed (> 72 hours) Immobilizing plaster cast Central venous access Age >= 75 History of VTE Family history of VTE Factor V Leiden Prothrombin [id number] Lupus anticoagulant Anticardiolipin antibodies Elevated serum homocysteine Heparin-induced thrombocytopenia Other congenital or acquired thrombophilia Stroke (< 1 month) Elective arthroplasty Hip, pelvis, or leg fracture Acute spinal cord injury (< 1 month) Prophylaxis Regimen Total Risk Factor Score Risk Level Prophylaxis Regimen 0-1 Low Early ambulation 2 Moderate Order ONE of the following: *Sequential Compression Device (SCD) *Heparin 5000 units SQ BID 3-4 Higher Order ONE of the following medications: *Heparin 5000 units SQ TID *Enoxaparin/Lovenox 40 mg SQ daily (WT < 150 kg, CrCl > 30 mL/min) *Enoxaparin/Lovenox 30 mg SQ daily (WT < 150 kg, CrCl > 10-29 mL/min) *Enoxaparin/Lovenox 30 mg SQ BID (WT < 150 kg, CrCl > 30 mL/min) AND/OR *Sequential Compression Device (SCD) 5 or more Highest Order ONE of the following medications: *Heparin 5000 units SQ TID (Preferred with Epidurals) *Enoxaparin/Lovenox 40 mg SQ daily (WT < 150 kg, CrCl > 30 mL/min) *Enoxaparin/Lovenox 30 mg SQ daily (WT < 150 kg, CrCl > 10-29 mL/min) *Enoxaparin/Lovenox 30 mg SQ BID (WT < 150 kg, CrCl > 30 mL/min) AND *Sequential Compression Device (SCD) Assessment and Plan Problem List: (1) COPD (chronic obstructive pulmonary disease) ICD Code: J44.9 - Chronic obstructive pulmonary disease, unspecified (2) Failure of outpatient treatment ICD Code: Z78.9 - Other specified health status (3) Leukocytosis ICD Code: D72.829 - Leukocytosis Status: Acute (4) Tobacco abuse ICD Code: Z72.0 - Tobacco abuse Status: Chronic Assessment and Plan A/P: 1. COPD: Chronic Respiratory Failure w/ Acute Exacerbation. Severe. O2 sat 95% on 6L NC, significant work of breathing on exam, +dyspnea w/ speech, s/p DuoNeb x5 w/ persistent wheezing. Continue O2 as needed, monitor O2 sat. Solu- Medrol, DuoNeb q4h and q2h prn, Symbicort, Mucinex. 2. Failure of Outpt Tx: s/p Doxycycline, Prednisone, DuoNeb x2 days w/ no improvement, persistent SOB/wheezing and increased work of breathing. Continue w/ treatment as above. Resume home Tamiflu as pt w/ sick contacts + for Flu. 3. Leukocytosis: WBC 17, likely secondary to steroid therapy, however in light of severe symptoms and sick contacts, will treat empirically for atypical PNA w/ Levaquin IV. CXR w/ no acute findings, images reviewed by me. 4. Tobacco Abuse: Pt counselled. NicoDerm prn if needed. 5. DVT Prophylaxis: Lovenox 6. Social work for d/c planning as needed. 7. Labs/records/imaging reviewed by me, case discussed at length w/ ER physician. Physician Certification 2 Midnight Certification Type: Admission for Inpatient Services Order for Inpatient Services The services are ordered in accordance with Medicare regulations or non- Medicare payer requirements, as applicable. In the case of services not specified as inpatient-only, they are appropriately provided as inpatient services in accordance with the 2-midnight benchmark. Estimated LOS (days): 2 days is the estimated time the patient will need to remain in the hospital, assuming treatment plan goals are met and no additional complications. Post-Hospital Plan: Not yet determined Mimi Cornelius MD Oct 25, 2017 03:41
[2017-10-25] MEDS: LEVOFLOXACIN 750 MG PREMIX INJ 150 ML IV SCH (03:51)
[2017-10-25] MEDS ORDERED: LACTATED RINGER'S 1000 ML INJ 1,000 ML IV ONE (05:30)
--- NOTE | 2017-10-25 08:17 | RADRPT ---
EXAM DATE/TIME: 10/25/2017 07:55 [facility] COMPARISON: CHEST SINGLE AP, October 25, 2017, 2:29. INDICATIONS : Halicat, shortness of breath MEDICAL HISTORY : Chronic obstructive pulmonary disease. SURGICAL HISTORY : None. ENCOUNTER: Subsequent ACUITY: 1 day PAIN SCORE: 0/10 LOCATION: Bilateral chest FINDINGS: A single view of the chest demonstrates the lungs to be symmetrically aerated without evidence of mas s, infiltrate or effusion. The cardiomediastinal contours are unremarkable. Osseous structures are intact. CONCLUSION: No acute disease. Cris Zendejas MD on October 25, 2017 at 8:14 Board Certified Radiologist. This report was verified electronically.
[2017-10-25] MEDS: RESP: ALBUTEROL 2.5 MG/IPRATROPIUM 0.5 MG NEB (SCH) NEB ×4 (08:21→20:16)
[2017-10-25] MEDS: MAGNESIUM SULFATE 1 GM PREMIX 100 ML IV SCH ×2 (08:31→09:00)
--- NOTE | 2017-10-25 08:32 | HHI.PR ---
Subjective Remarks This is a pleasant 52 y/o Female with Hypertension, Anxiety disorder, COPD, Tobacco dependence who was admitted today and arrived to the floor one hour before she was Halicat, the reason for admission was severe Hypoxemia, no ABGs in chart were asked, on CXR on admission there's Hyperinflation but no infiltrates, recommended to be admitted on Bronchodilator, Mucolytic, antibiotics, and steroids, but she continue with desaturation at this time on non rebreather mask and 80% of saturation, She smokes one pack of cigarettes daily, Discussed with Doctor Junior Cordero [facility] Coordinator for transfer to Intensive Care unit. Objective Vital Signs Date Time Temp Pulse Resp B/P (MAP) Pulse Ox O2 Delivery O2 Flow Rate FiO2 10/25/17 05:31 98.5 122 22 136/76 (96) 97 10/25/17 02:20 96 Nasal Cannula 6.00 10/25/17 02:14 136 24 95 Nasal Cannula 6.00 10/25/17 02:14 24 95 Nasal Cannula 6.00 10/25/17 02:14 95 Nasal Cannula 6.00 10/25/17 02:06 98.4 135 35 134/79 (97) 97 I/O 10/24/17 10/24/17 10/24/17 10/25/17 10/25/17 10/25/17 07:00 15:00 23:00 07:00 15:00 23:00 Intake Total 240 ml Balance 240 ml Intake Oral 240 ml Result Diagram: 10/25/1722410/25/17224 Imaging Last Impressions Chest X-Ray 10/25/17210 Signed Impressions: Service Date/Time: Wednesday, October 25, 2017 02:29 - CONCLUSION: No acute disease. Boogie Carlos MD Procedures Non Rebreather Mask Other Results Laboratory Tests Test 10/25/17 02:25 10/25/17 03:50 10/25/17 07:55 White Blood Count 17.2 TH/MM3 Red Blood Count 4.79 MIL/MM3 Hemoglobin 13.7 GM/DL Hematocrit 40.9 % Mean Corpuscular Volume 85.5 FL Mean Corpuscular Hemoglobin 28.6 PG Mean Corpuscular Hemoglobin Concent 33.4 % Red Cell Distribution Width 13.6 % Platelet Count 466 TH/MM3 Mean Platelet Volume 7.9 FL Neutrophils (%) (Auto) 76.1 % Lymphocytes (%) (Auto) 16.8 % Monocytes (%) (Auto) 7.0 % Eosinophils (%) (Auto) 0.0 % Basophils (%) (Auto) 0.1 % Neutrophils # (Auto) 13.1 TH/MM3 Lymphocytes # (Auto) 2.9 TH/MM3 Monocytes # (Auto) 1.2 TH/MM3 Eosinophils # (Auto) 0.0 TH/MM3 Basophils # (Auto) 0.0 TH/MM3 CBC Comment DIFF FINAL Differential Comment Blood Urea Nitrogen 13 MG/DL Creatinine 0.60 MG/DL Random Glucose 135 MG/DL Calcium Level 9.5 MG/DL Sodium Level 144 MEQ/L Potassium Level 3.9 MEQ/L Chloride Level 110 MEQ/L Carbon Dioxide Level 26.2 MEQ/L Anion Gap 8 MEQ/L Estimat Glomerular Filtration Rate 105 ML/MIN B-Type Natriuretic Peptide 29 PG/ML Lactic Acid Level 3.6 mmol/L Blood Gas Puncture Site RT RADIAL Blood Gas Patient Temperature 98.6 Blood Gas HCO3 24 mmol/L Blood Gas Base Excess -2.0 mmol/L Blood Gas Oxygen Saturation 97 % Arterial Blood pH 7.30 Arterial Blood Partial Pressure CO2 50 mmHg Arterial Blood Partial Pressure O2 212 mmHg Arterial Blood Oxygen Content 18.3 Vol % Arterial Blood Carboxyhemoglobin 1.4 % Arterial Blood Methemoglobin 1.1 % Blood Gas Hemoglobin 13.2 G/DL Oxygen Delivery Device NRBR Blood Gas Liter Flow 15 L/M Blood Gas Inspired Oxygen 100 % Objective Remarks GENERAL: Acute respiratory distress, talks in short sentences. HEENT: PERRLA, EOMI. No scleral icterus or conjunctival pallor. No lid lag or facial droop. CARDIOVASCULAR: Regular rate and rhythm. tachycardia. RESPIRATORY: Decreased breath sounds bilateral, expiratory an inspiratory wheezing, some rhonchi. GASTROINTESTINAL: Abdomen soft, non-tender, nondistended. BS normal. MUSCULOSKELETAL: Extremities without clubbing, cyanosis, or edema. No obvious deformities. NEUROLOGICAL: Awake, alert and oriented x4. No focal neurologic deficits. Moving both upper and lower extremities spontaneously. Medications and IVs Current Medications Medications (Trade) Dose Ordered Sig/Melonie Route Start Time Stop Time Status Last Admin (SoluMEDROL INJ) 40 mg Q6H IV PUSH 10/25/17 09:00 (Duoneb Neb) 1 ampule Q4HR WHILE AWAKE NEB NEB 10/25/17 08:00 10/25/17 08:21 (Duoneb Neb) 1 ampule Q2HR NEB PRN NEB 10/25/17 03:15 (Mucinex Er) 600 mg BID PO 10/25/17 09:00 (NS Flush) 2 ml UNSCH PRN IV FLUSH 10/25/17 03:15 (NS Flush) 2 ml BID IV FLUSH 10/25/17 09:00 (Zofran Inj) 4 mg Q6H PRN IVP 10/25/17 03:15 (Lovenox Inj) 40 mg Q24H SQ 10/25/17 09:00 (Tylenol) 650 mg Q6H PRN PO 10/25/17 03:15 (Morphine Inj) 2 mg Q3H PRN IV PUSH 10/25/17 03:15 (Gisel-Colace) 1 tab BID PO 10/25/17 09:00 (Milk Of Magnesia Liq) 30 ml Q12H PRN PO 10/25/17 03:15 (Senokot) 17.2 mg Q12H PRN PO 10/25/17 03:15 (Dulcolax Supp) 10 mg DAILY PRN RECTAL 10/25/17 03:15 (Lactulose Liq) 30 ml DAILY PRN PO 10/25/17 03:15 Levofloxacin/ Dextrose 150 ml @ 100 mls/hr Q24H IV 10/25/17 03:00 10/25/17 03:51 (Buspar) 10 mg BID PO 10/25/17 09:00 (Flonase Fran Spr) 1 spray BID EACH NARE 10/25/17 09:00 (Symbicort 160-4.5 Mcg Inh) 2 puff BID INH 10/25/17 09:00 (Tamiflu) 75 mg DAILY PO 10/25/17 09:00 Magnesium Sulfate/ Dextrose 100 ml @ 100 mls/hr Q1H IV 10/25/17 09:00 10/25/17 10:59 A/P Assessment and Plan 1. Acute Hypoxemic and Hypercarbic Respiratory Failure, received seven treatments of Bronchodilators, Solu-Medrol 125 mg IV, antibiotics Mucolytics in chart, saturation through blood gas 97% with Non rebreather mask will transfer to Intensive Care Unit. discussed with Doctor Junior Cordero. 2. COPD: Chronic Respiratory Failure w/ Acute Exacerbation. Severe. O2 sat 95 % on 6L. 3. Failure of Outpt Tx: s/p Doxycycline, Prednisone, DuoNeb x2 days w/ no improvement, persistent SOB/wheezing and increased work of breathing. Empiric management wtih Levaquin started in ER, has Leukocytosis probable secondary to Steroid management, CXR no acute findings. 4. Tobacco Abuse: Pt counselled. NicoDerm prn if needed. DVT Prophylaxis: [employer] Social work for d/c planning as needed. I had the pleasure to talk about the case with Boiler Tube Reamer Doctor Junior patel for his input and recommendations. Transfer to Intensive Care Unit. Discharge Planning Expected in two days. Roland Anderson MD Oct 25, 2017 08:32
[2017-10-25] MEDS: DOCUSATE SODIUM 50 MG/SENNA 8.6 MG TAB PO SCH ×2 (09:00→20:37)
[2017-10-25] MEDS: SODIUM CHLORIDE 0.9% FLUSH 10 ML FLUSH IV FLUSH SCH ×2 (09:00→20:40)
[2017-10-25] MEDS: ENOXAPARIN SODIUM 40 MG/0.4 ML SYRINGE SQ SCH (09:00)
[2017-10-25] MEDS: methylPREDNISolone SOD SUCC 40 MG/1 ML VIAL IV PUSH SCH ×3 (09:02→20:40)
[2017-10-25] MEDS: FLUTICASONE PROPIONATE 50 MCG/ACT 16 GM NASAL SPRAY EACH NARE SCH ×2 (09:02→20:40)
[2017-10-25] MEDS: guaiFENesin E.R. 600 MG TAB PO SCH ×2 (09:02→20:40)
[2017-10-25] MEDS: busPIRone HCL 10 MG TAB PO SCH ×2 (09:02→20:40)
[2017-10-25] MEDS: BUDESONIDE-FORMOTEROL 160/4.5 MCG INHALER INH SCH ×2 (09:03→20:39)
[2017-10-25] MEDS: OSELTAMIVIR PHOSPHATE 75 MG CAP PO SCH (09:03)
--- NOTE | 2017-10-25 09:31 | PD.CONS ---
HPI Service Critical Care Medicine Consult Requested By rapid response team Reason for Consult acute respiratory distress Primary Care Physician No Primary Care Physician History of Present Illness This is a 52yF with tob abuse and COPD who was admitted for acute shortness of breath and COPD exacerbation. of note her mother has the flu and she is currently being treated outpatient for the flu with Tamiflu for a 3day history of worsening shortness of breath, myalgias, fever, chills. today on the floor she had acute onset worsening of her dyspnea and respiratory distress. rapid response was called. patient was emergently moved to ICU and started on BiPAP. when I evaluated the patient, she was in acute respiratory distress, unable to talk in complete sentences. history is very limited due to her distress. she does endorse SOB, denies chest pain. Review of Systems ROS Limitations: Clinical Condition ROS acute respiratory distress on bipap Past Family Social History Allergies: Coded Allergies: penicillin G (Verified Allergy, Severe, RASH, 10/25/17) acetylcysteine (Verified Adverse Reaction, Intermediate, Shortness of Breath, 10/25/17) pt experienced SOB, increased heart rate and anxiety with mucomyst resp treatment x 2 codeine (Verified Adverse Reaction, Unknown, NAUSEA, 10/25/17) Past Medical History unobtainable due to her clinical condition. per chart review: Anxiety HTN COPD Tobacco Abuse Past Surgical History Breast Cyst Removal Reported Medications Fluticasone Nasal [place] 50 Mcg/Act Naspr 100 Mcg EACH NARE BID 50 mcg/spray Albuterol Neb (Albuterol Sulfate) 2.5 Mg/3 Ml Neb 2.5 Mg NEB Q4HR NEB PRN Prednisone 20 Mg Tab 20 Mg PO BID 5 Days Proair Hfa 8.5 GM Inh (Albuterol Sulfate) 90 Mcg/Act Aer 2 Puff INH Q4-6H PRN 108 mcg/actuation Ibuprofen 800 Mg Tab 800 Mg PO Q6HR PRN Oxygen (O2) Device Liter GENE.CANULA CONTINUOUS Oxygen Concentrator Portable Gaseous 2 L/min via Nasal Canula Continuous For 99 months Ventolin Hfa 18 GM Inh (Albuterol Sulfate) 90 Mcg/Act Aer 2 Puff INH Q6H PRN Buspirone (Buspirone HCl) 10 Mg Tab 10 Mg PO BID Duoneb (Ipratropium-Albuterol Neb) 0.5-2.5 Mg/3 Ml Neb 1 Nebule INH Q4HR NEB Advair Diskus Inh (Fluticasone-Salmeterol Inh) 250-50 Mcg/Blist Aer 1 Puff INH BID Rinse mouth after use. Nebulizer 1 Mis Mis Ea .ROUTE DIRECTED Prednisone (21) 10 mg tab Dose Pack (Prednisone) 10 Mg Pack 10 Mg PO DIRECTED Doxycycline Hyclate 100 Mg Cap 100 Mg PO BID Tamiflu (Oseltamivir Phosphate) 75 Mg Cap 75 Mg PO DAILY Active Ordered Medications See MAR Family History unobtainable due to clinical condition. Social History unobtainable due to clinical condition. per chart review: smokes 1 ppd. occasional etoh. Physical Exam Vital Signs Vital Signs Date Time Temp Pulse Resp B/P (MAP) Pulse Ox O2 Delivery O2 Flow Rate FiO2 10/25/17 08:21 99 50 10/25/17 05:31 98.5 122 22 136/76 (96) 97 10/25/17 02:20 96 Nasal Cannula 6.00 10/25/17 02:14 136 24 95 Nasal Cannula 6.00 10/25/17 02:14 24 95 Nasal Cannula 6.00 10/25/17 02:14 95 Nasal Cannula 6.00 10/25/17 02:06 98.4 135 35 134/79 (97) 97 Physical Exam patient in acute respiratory distress. using accessory muscles. severely decreased air entry- scant wheezes but sounds very tight with minimal air entry bilaterally. on bipap 100% fio2. tachypneic. Laboratory Laboratory Tests Test 10/25/17 02:25 10/25/17 03:50 10/25/17 07:55 White Blood Count 17.2 Red Blood Count 4.79 Hemoglobin 13.7 Hematocrit 40.9 Mean Corpuscular Volume 85.5 Mean Corpuscular Hemoglobin 28.6 Mean Corpuscular Hemoglobin Concent 33.4 Red Cell Distribution Width 13.6 Platelet Count 466 Mean Platelet Volume 7.9 Neutrophils (%) (Auto) 76.1 Lymphocytes (%) (Auto) 16.8 Monocytes (%) (Auto) 7.0 Eosinophils (%) (Auto) 0.0 Basophils (%) (Auto) 0.1 Neutrophils # (Auto) 13.1 Lymphocytes # (Auto) 2.9 Monocytes # (Auto) 1.2 Eosinophils # (Auto) 0.0 Basophils # (Auto) 0.0 CBC Comment DIFF FINAL Differential Comment Blood Urea Nitrogen 13 Creatinine 0.60 Random Glucose 135 Calcium Level 9.5 Sodium Level 144 Potassium Level 3.9 Chloride Level 110 Carbon Dioxide Level 26.2 Anion Gap 8 Estimat Glomerular Filtration Rate 105 B-Type Natriuretic Peptide 29 Lactic Acid Level 3.6 Blood Gas Puncture Site RT RADIAL Blood Gas Patient Temperature 98.6 Blood Gas HCO3 24 Blood Gas Base Excess -2.0 Blood Gas Oxygen Saturation 97 Arterial Blood pH 7.30 Arterial Blood Partial Pressure CO2 50 Arterial Blood Partial Pressure O2 212 Arterial Blood Oxygen Content 18.3 Arterial Blood Carboxyhemoglobin 1.4 Arterial Blood Methemoglobin 1.1 Blood Gas Hemoglobin 13.2 Oxygen Delivery Device NRBR Blood Gas Liter Flow 15 Blood Gas Inspired Oxygen 100 Date/Time Source Procedure Growth Status 10/25/17 02:25 Nasal Washing Influenza Types A,B Antigen (EJNNIFER) - Final NEGATIVE FOR FLU A AND B ANTIGEN.... Complete Result Diagram: 10/25/1722410/25/17224 Imaging Last Impressions Chest X-Ray 10/25/17210 Signed Impressions: Service Date/Time: Wednesday, October 25, 2017 02:29 - CONCLUSION: No acute disease. Boogie Carlos MD Assessment and Plan Assessment and Plan 52yF with tob abuse, COPD with presumed influenza pneumonia clinically and COPD exacerbation, now with acute hypoxic respiratory failure in respiratory distress. acutely critically ill this morning needing emergent intervention. Active Problems: Influenza Pneumonia Tobacco Abuse Acute COPD exacerbation Plan: - frequent nebs, may need continuous initially - mgso4 2gm iv x 1 stat - bipap - wean fio2 for goal spo2 > 90% - continue tamiflu and levaquin - admit to ICU. Critical care time: 40 minutes, exclusive of separately billable procedures. Junior Sequeira MD Oct 25, 2017 09:31
--- NOTE | 2017-10-25 12:28 | EKG ---
Date Performed: 10/25/2017 Time Performed: 07:59:32 PTAGE: 52 years EKG: SINUS TACHYCARDIA ABNORMAL RHYTHM ECG PREVIOUS TRACING : 09/26/2017 14.51 Since the prior tracing, there has been no significant soto DOCTOR: Jace Desir Interpretating Date/Time 10/25/2017 12:24:54
[2017-10-25] MEDS: RESP: ALBUTEROL 2.5 MG/IPRATROPIUM 0.5 MG NEB (PRN) NEB ×2 (17:54→23:10)
[2017-10-25] MEDS ORDERED: LORazepam 2 MG/ML VIAL IV ONE (18:45)
[2017-10-26] VITALS (16 sets, daily range): BP systolic 100–119; BP diastolic 58–78; PULSE 98–119; RESP 19–27; TEMP 97.6–98.8; O2SAT 89–98
[2017-10-26] MEDS: RESP: ALBUTEROL 2.5 MG/IPRATROPIUM 0.5 MG NEB (PRN) NEB (03:36)
[2017-10-26] MEDS: LEVOFLOXACIN 750 MG PREMIX INJ 150 ML IV SCH (03:44)
[2017-10-26] MEDS: methylPREDNISolone SOD SUCC 40 MG/1 ML VIAL IV PUSH SCH ×4 (03:44→21:13)
[2017-10-26 04:22] LABS: AUTOMATED NEUTROPHIL # 9.1 TH/MM3 (1.8-7.7); BASOPHIL % 0.1 % (0.0-2.0); HEMATOCRIT 36.7 % (35.0-46.0); HEMOGLOBIN 12.1 GM/DL (11.6-15.3); LYMPH % 14.1 % (9.0-44.0); LYMPHOCYTE # 1.6 TH/MM3 (1.0-4.8); MEAN CELL VOLUME 85.9 FL (80.0-100.0); MEAN CORPUSCULAR HEMOGLOBIN 28.4 PG (27.0-34.0); MEAN CORPUSCULAR HGB CONC 33.1 % (32.0-36.0); MEAN PLATELET VOLUME 7.8 FL (7.0-11.0); MONO % 4.2 % (0.0-8.0); MONOCYTE # 0.5 TH/MM3 (0-0.9); NEUT % 81.6 % (16.0-70.0); PLATELET COUNT 379 TH/MM3 (150-450); RED BLOOD COUNT 4.27 MIL/MM3 (4.00-5.30); RED CELL DISTRIBUTION WIDTH 13.4 % (11.6-17.2); WHITE BLOOD COUNT 11.2 TH/MM3 (4.0-11.0)
[2017-10-26 04:42] LABS: ALBUMIN 3.2 GM/DL (3.4-5.0); AST (GOT) 7 U/L (15-37); BLOOD UREA NITROGEN 12 MG/DL (7-18); CALCIUM 9.5 MG/DL (8.5-10.1); CHLORIDE 107 MEQ/L (98-107); GLOMERULAR FILTRATION RATE 130 ML/MIN (>89); GLUCOSE,RANDOM 156 MG/DL (74-106); SODIUM (NA) 143 MEQ/L (136-145)
[2017-10-26 04:43] LABS: ALT (GPT) 16 U/L (10-53)
[2017-10-26 04:45] LABS: ALKALINE PHOSPHATASE 104 U/L (45-117); TOTAL BILIRUBIN ADULT 0.1 MG/DL (0.2-1.0); TOTAL PROTEIN 6.5 GM/DL (6.4-8.2)
[2017-10-26] MEDS: RESP: ALBUTEROL 2.5 MG/IPRATROPIUM 0.5 MG NEB (SCH) NEB ×4 (07:48→19:51)
[2017-10-26] MEDS: BUDESONIDE-FORMOTEROL 160/4.5 MCG INHALER INH SCH ×2 (08:05→21:14)
[2017-10-26] MEDS: SODIUM CHLORIDE 0.9% FLUSH 10 ML FLUSH IV FLUSH SCH ×2 (08:06→21:14)
[2017-10-26] MEDS: guaiFENesin E.R. 600 MG TAB PO SCH ×2 (08:07→21:14)
[2017-10-26] MEDS: OSELTAMIVIR PHOSPHATE 75 MG CAP PO SCH (08:07)
[2017-10-26] MEDS: busPIRone HCL 10 MG TAB PO SCH ×2 (08:07→21:14)
[2017-10-26] MEDS: DOCUSATE SODIUM 50 MG/SENNA 8.6 MG TAB PO SCH ×3 (08:08→21:18)
[2017-10-26] MEDS: ENOXAPARIN SODIUM 40 MG/0.4 ML SYRINGE SQ SCH (08:08)
--- NOTE | 2017-10-26 11:02 | HHI.CCPN ---
Subjective Remarks/Hospital Course Hospital Course: This is a 52yF with tob abuse and COPD who was admitted for acute shortness of breath and COPD exacerbation. of note her mother has the flu and she is currently being treated outpatient for the flu with Tamiflu for a 3day history of worsening shortness of breath, myalgias, fever, chills. today on the floor she had acute onset worsening of her dyspnea and respiratory distress. rapid response was called. patient was emergently moved to ICU and started on BiPAP. when I evaluated the patient, she was in acute respiratory distress, unable to talk in complete sentences. history is very limited due to her distress. she does endorse SOB, denies chest pain. Subjective: 10/26: clinically improving. very tearful on exam today: wants to leave because she has to move to [place] on Thursday. I explained she was nearly on life-support yesterday and remains very ill with high oxygen requirement and this is medically unwise. ROS otherwise negative. Objective Vital Signs Date Time Temp Pulse Resp B/P (MAP) Pulse Ox O2 Delivery O2 Flow Rate FiO2 10/26/17 10:00 119 10/26/17 08:00 95 Nasal Cannula 4.00 10/26/17 08:00 97.7 27 119/74 (89) 10/26/17 03:36 40 Intake and Output 10/26/17 10/26/17 10/27/17 08:00 16:00 00:00 Intake Total 30 ml Output Total 0 ml Balance 30 ml Result Diagram: 10/26/17 0353 10/26/17 0353 Other Results Microbiology Date/Time Source Procedure Growth Status 10/25/17 02:25 Nasal Washing Influenza Types A,B Antigen (JENNIFER) - Final NEGATIVE FOR FLU A AND B ANTIGEN.... Complete Imaging Last Impressions Chest X-Ray 10/25/17 0211 Signed Impressions: Service Date/Time: Wednesday, October 25, 2017 02:29 - CONCLUSION: No acute disease. Boogie Carlos MD Objective Remarks gen: middle-aged female, sitting in bed, tearful. heent: nc. at. perrl. mmm. neck: no jvd. trachea midline. chest: equal chest rise. 4L o2 by NC. improved aeration. scant wheezes. cv: normal rate, regular rhythm. sinus. abd: soft, nontender, nondistended. no guarding. extr: no edema. well perfused. neuro: RASS 0. tearful. follows commands. no focal deficits. A/P Assessment and Plan 52yF with tob abuse, COPD with presumed influenza pneumonia clinically and COPD exacerbation, now with resolving acute hypoxic respiratory failure. clinically improving, but not ready for hospital discharge yet- remains on o2 and with hypoxia, severe COPD exacerbation, presumed influenza. safe to transfer out of ICU. Active Problems: Influenza Pneumonia Tobacco Abuse Acute COPD exacerbation Plan: - frequent nebs - wean nc o2 for goal spo2 > 90% - continue tamiflu and levaquin - transfer out of ICU. - oob. - iv steroids. transfer to floor. consult hospitalist. Junior Sequeira MD Oct 26, 2017 11:02
[2017-10-26] MEDS: OLANZapine 5 MG TAB PO PRN ×2 (11:42→21:23)
[2017-10-26] MEDS: BENZONATATE 100 MG CAP PO PRN ×2 (17:09→22:19)
[2017-10-26] MEDS: FLUTICASONE PROPIONATE 50 MCG/ACT 16 GM NASAL SPRAY EACH NARE SCH ×2 (21:14→21:15)
[2017-10-27] VITALS (7 sets, daily range): BP systolic 98–120; BP diastolic 57–80; PULSE 86–106; RESP 13–45; TEMP 97.7–98.9; O2SAT 93–97
[2017-10-27] MEDS: LEVOFLOXACIN 750 MG PREMIX INJ 150 ML IV SCH (03:17)
[2017-10-27] MEDS: methylPREDNISolone SOD SUCC 40 MG/1 ML VIAL IV PUSH SCH ×2 (03:17→07:49)
[2017-10-27] MEDS: BENZONATATE 100 MG CAP PO PRN (07:48)
[2017-10-27] MEDS: guaiFENesin E.R. 600 MG TAB PO SCH (07:48)
[2017-10-27] MEDS: OSELTAMIVIR PHOSPHATE 75 MG CAP PO SCH (07:49)
[2017-10-27] MEDS: busPIRone HCL 10 MG TAB PO SCH (07:49)
[2017-10-27] MEDS: ENOXAPARIN SODIUM 40 MG/0.4 ML SYRINGE SQ SCH (07:49)
[2017-10-27] MEDS: OLANZapine 5 MG TAB PO PRN (07:49)
[2017-10-27] MEDS: SODIUM CHLORIDE 0.9% FLUSH 10 ML FLUSH IV FLUSH SCH (07:50)
[2017-10-27] MEDS: BUDESONIDE-FORMOTEROL 160/4.5 MCG INHALER INH SCH (07:50)
[2017-10-27] MEDS: FLUTICASONE PROPIONATE 50 MCG/ACT 16 GM NASAL SPRAY EACH NARE SCH (07:50)
[2017-10-27] MEDS: RESP: ALBUTEROL 2.5 MG/IPRATROPIUM 0.5 MG NEB (SCH) NEB ×3 (07:51→15:48)
--- NOTE | 2017-10-27 08:09 | HHI.PR ---
Subjective Remarks This is a pleasant 52 y/o Female with Hypertension, Anxiety disorder, COPD, Tobacco dependence who was admitted today and arrived to the floor one hour before she was Halicat, the reason for admission was severe Hypoxemia, no ABGs in chart were asked, on CXR on admission there's Hyperinflation but no infiltrates, recommended to be admitted on Bronchodilator, Mucolytic, antibiotics, and steroids, but she continue with desaturation at this time on non rebreather mask and 80% of saturation, She smokes one pack of cigarettes daily, Discussed with Doctor Junior Cordero Associate Property Manager for transfer to Intensive Care unit. Metal Products Viewer Notes: This is a 52yF with tob abuse and COPD who was admitted for acute shortness of breath and COPD exacerbation. of note her mother has the flu and she is currently being treated outpatient for the flu with Tamiflu for a 3day history of worsening shortness of breath, myalgias, fever, chills. today on the floor she had acute onset worsening of her dyspnea and respiratory distress. rapid response was called. patient was emergently moved to ICU and started on BiPAP. when I evaluated the patient, she was in acute respiratory distress, unable to talk in complete sentences. history is very limited due to her distress. she does endorse SOB, denies chest pain. 10/26: clinically improving. very tearful on exam today: wants to leave because she has to move to [place] on Thursday. I explained she was nearly on life-support yesterday and remains very ill with high oxygen requirement and this is medically unwise. ROS otherwise negative. Hospitalist Notes: 10/27: Seen in her bedroom, still with some expiratory wheezing, in the need for Oxygen at this time 4 L/min with 93% oxygen saturation, the patient wants to go home today discussed with Sidewalk Repairer, I think she is not able to be discharged at this time, no nausea, vomit or diarrhea, will perform Walk test tomorrow morning and may be discharged on oxygen at home Objective Vital Signs Date Time Temp Pulse Resp B/P (MAP) Pulse Ox O2 Delivery O2 Flow Rate FiO2 10/27/17 06:00 86 10/27/17 04:00 99 Nasal Cannula 6.00 10/27/17 04:00 98.9 89 13 115/72 (86) 97 10/27/17 04:00 89 10/27/17 02:00 92 10/27/17 00:00 98.9 96 18 98/57 (71) 95 10/27/17 00:00 95 Nasal Cannula 6.00 10/27/17 00:00 96 10/26/17 22:00 108 10/26/17 20:00 98.8 111 19 105/63 (77) 97 10/26/17 20:00 105 10/26/17 20:00 97 Nasal Cannula 6.00 10/26/17 19:51 94 Nasal Cannula 6.00 10/26/17 18:00 107 10/26/17 16:00 97.6 119 24 108/78 (88) 89 10/26/17 16:00 89 Nasal Cannula 6.00 10/26/17 16:00 119 10/26/17 14:00 103 10/26/17 12:00 93 Nasal Cannula 6.00 10/26/17 12:00 115 10/26/17 12:00 97.7 115 19 109/65 (80) 93 10/26/17 10:00 119 I/O 10/26/17 10/26/17 10/26/17 10/27/17 10/27/17 10/27/17 07:00 15:00 23:00 07:00 15:00 23:00 Intake Total 30 ml 960 ml 390 ml Output Total 0 ml Balance 30 ml 960 ml 390 ml Intake Oral 30 ml 960 ml 240 ml IV Total 150 ml Output Urine Total 0 ml # Voids 3 1 # Bowel Movements 0 0 Result Diagram: 10/26/17 0353 10/26/17 0353 Imaging Last Impressions Chest X-Ray 10/25/17 0211 Signed Impressions: Service Date/Time: Wednesday, October 25, 2017 02:29 - CONCLUSION: No acute disease. Boogie Carlos MD Procedures Intensive Care management, Other Results Laboratory Tests Test 10/25/17 02:25 10/25/17 07:55 10/25/17 09:20 10/25/17 13:27 B-Type Natriuretic Peptide 29 PG/ML Blood Gas Liter Flow 15 L/M Blood Gas Puncture Site LT RADIAL Blood Gas Patient Temperature 98.6 Blood Gas HCO3 24 mmol/L Blood Gas Base Excess -0.7 mmol/L Blood Gas Oxygen Saturation 96 % Arterial Blood pH 7.34 Arterial Blood Partial Pressure CO2 46 mmHg Arterial Blood Partial Pressure O2 142 mmHg Arterial Blood Oxygen Content 16.8 Vol % Arterial Blood Carboxyhemoglobin 1.0 % Arterial Blood Methemoglobin 1.4 % Blood Gas Hemoglobin 12.2 G/DL Oxygen Delivery Device BIPAP Blood Gas Ventilator Setting [id number]/[id number] Blood Gas Inspired Oxygen 50 % D-Dimer Quantitative (PE/DVT) 0.30 MG/L FEU Test 10/25/17 15:59 10/26/17 03:53 Lactic Acid Level 0.9 mmol/L White Blood Count 11.2 TH/MM3 Red Blood Count 4.27 MIL/MM3 Hemoglobin 12.1 GM/DL Hematocrit 36.7 % Mean Corpuscular Volume 85.9 FL Mean Corpuscular Hemoglobin 28.4 PG Mean Corpuscular Hemoglobin Concent 33.1 % Red Cell Distribution Width 13.4 % Platelet Count 379 TH/MM3 Mean Platelet Volume 7.8 FL Neutrophils (%) (Auto) 81.6 % Lymphocytes (%) (Auto) 14.1 % Monocytes (%) (Auto) 4.2 % Eosinophils (%) (Auto) 0.0 % Basophils (%) (Auto) 0.1 % Neutrophils # (Auto) 9.1 TH/MM3 Lymphocytes # (Auto) 1.6 TH/MM3 Monocytes # (Auto) 0.5 TH/MM3 Eosinophils # (Auto) 0.0 TH/MM3 Basophils # (Auto) 0.0 TH/MM3 CBC Comment DIFF FINAL Differential Comment Blood Urea Nitrogen 12 MG/DL Creatinine 0.50 MG/DL Random Glucose 156 MG/DL Total Protein 6.5 GM/DL Albumin 3.2 GM/DL Calcium Level 9.5 MG/DL Alkaline Phosphatase 104 U/L Aspartate Amino Transf (AST/SGOT) 7 U/L Alanine Aminotransferase (ALT/SGPT) 16 U/L Total Bilirubin 0.1 MG/DL Sodium Level 143 MEQ/L Potassium Level 4.5 MEQ/L Chloride Level 107 MEQ/L Carbon Dioxide Level 31.0 MEQ/L Anion Gap 5 MEQ/L Estimat Glomerular Filtration Rate 130 ML/MIN Objective Remarks GENERAL: No acute distress HEENT: PERRLA, EOMI. No scleral icterus or conjunctival pallor. No lid lag or facial droop. CARDIOVASCULAR: Regular rate and rhythm. tachycardia. RESPIRATORY: Decreased Breath sounds bilateral, Mild expiratory wheezing. no crackles. GASTROINTESTINAL: Abdomen soft, non-tender, nondistended. BS normal. MUSCULOSKELETAL: Extremities without clubbing, cyanosis, or edema. No obvious deformities. NEUROLOGICAL: Awake, alert and oriented x4. No focal neurologic deficits. Moving both upper and lower extremities spontaneously. Medications and IVs Current Medications Medications (Trade) Dose Ordered Sig/Melonie Route Start Time Stop Time Status Last Admin (SoluMEDROL INJ) 40 mg Q6H IV PUSH 10/25/17 09:00 10/27/17 07:49 (Duoneb Neb) 1 ampule Q4HR WHILE AWAKE NEB NEB 10/25/17 08:00 10/27/17 07:51 (Duoneb Neb) 1 ampule Q2HR NEB PRN NEB 10/25/17 03:15 10/26/17 03:36 (Mucinex Er) 600 mg BID PO 10/25/17 09:00 10/27/17 07:48 (NS Flush) 2 ml UNSCH PRN IV FLUSH 10/25/17 03:15 (NS Flush) 2 ml BID IV FLUSH 10/25/17 09:00 10/27/17 07:50 (Zofran Inj) 4 mg Q6H PRN IVP 10/25/17 03:15 (Lovenox Inj) 40 mg Q24H SQ 10/25/17 09:00 10/27/17 07:49 (Tylenol) 650 mg Q6H PRN PO 10/25/17 03:15 10/25/17 10:22 (Morphine Inj) 2 mg Q3H PRN IV PUSH 10/25/17 03:15 10/26/17 10:59 (Gisel-Colace) 1 tab BID PO 10/25/17 09:00 (Milk Of Magnesia Liq) 30 ml Q12H PRN PO 10/25/17 03:15 (Senokot) 17.2 mg Q12H PRN PO 10/25/17 03:15 (Dulcolax Supp) 10 mg DAILY PRN RECTAL 10/25/17 03:15 (Lactulose Liq) 30 ml DAILY PRN PO 10/25/17 03:15 Levofloxacin/ Dextrose 150 ml @ 100 mls/hr Q24H IV 10/25/17 03:00 10/27/17 03:17 (Buspar) 10 mg BID PO 1/28/18 09:00 10/27/17 07:49 (Flonase Fran Spr) 1 spray BID EACH NARE 10/25/17 09:00 10/27/17 07:50 (Symbicort 160-4.5 Mcg Inh) 2 puff BID INH 10/25/17 09:00 10/27/17 07:50 (Tamiflu) 75 mg DAILY PO 10/25/17 09:00 10/27/17 07:49 (ZyPREXA) 5 mg Q8H PRN PO 10/26/17 11:00 10/27/17 07:49 (Tessalon) 100 mg Q6H PRN PO 10/26/17 17:15 10/27/17 07:48 A/P Assessment and Plan 1. Acute Hypoxemic and Hypercarbic Respiratory Failure, received seven treatments of Bronchodilators, Solu-Medrol 125 mg IV, antibiotics Mucolytics in chart, saturation through blood gas 97% with Non rebreather mask will transfer to Intensive Care Unit. appreciated management by Doctor Sequeira, at this time receiving 4 L/min of oxygen will get walk test tomorrow morning and may be discharged Home. 2. Influenza Pneumonia continue Tamiflu and Levaquin, continue titration of Solu -Medrol to 40 mg TID. may switch to by mouth after Walk test 3. COPD Exacerbation to continue Bronchodilator, Mucolytic Incentive spirometry , Keep oxygen for goal of oxygen saturation >90% 4. Failure of Outpt Tx: s/p Doxycycline, Prednisone, DuoNeb x2 days w/ no improvement, persistent SOB/wheezing and increased work of breathing. Empiric management wtih Levaquin started in ER, has Leukocytosis probable secondary to Steroid management, CXR no acute findings. 5. Tobacco Abuse: Pt counselled. NicoDerm prn if needed. DVT Prophylaxis: Together [employer] Social work for d/c planning as needed. Discharge Planning Expected by tomorrow. Roland Anderson MD Oct 27, 2017 08:09
--- NOTE | 2017-10-27 18:37 | HHI.DS ---
Discharge Summary Admission Date Oct 25, 2017 at 03:05 Discharge Date: Oct 27, 2017 Admitting Diagnosis COPD exacerbation/failed outpatient therapy/tachycardia (1) COPD (chronic obstructive pulmonary disease) ICD Code: J44.9 - Chronic obstructive pulmonary disease, unspecified Diagnosis: Principal (2) Failure of outpatient treatment ICD Code: Z78.9 - Other specified health status Diagnosis: Principal (3) Leukocytosis ICD Code: D72.829 - Leukocytosis Diagnosis: Principal Status: Acute (4) Tobacco abuse ICD Code: Z72.0 - Tobacco abuse Diagnosis: Principal Status: Chronic Procedures Non rebreather mask Brief History - From Admission This is a 52-year-old female with a PMH of Anxiety, HTN, COPD and Tobacco Abuse presented to the ER with complaints of SOB and wheezing for approx 3-4 days. Seen at Urgent Care 2 days ago and started on Doxycycline, Prednisone, Nebulizers and Tamiflu as pt's Mother found to be Flu positive. States she's been taking medications as prescribed w/ no improvement. Denies fever, chills or cough. SOB severe w/ significant respiratory distress. S/p DuoNeb x3 via EMS and DuoNeb x2 in ER in addition to Solu-Medrol w/ persistent SOB and increased work of breathing. O2 sat 95% on 6L NC. BP 134/79, HR 135, Afebrile. W WBC 17.2. Chemistry essentially unremarkable. CXR with no acute findings. Flu negative. CBC/BMP: 10/26/17 0353 10/26/17 0353 Significant Findings Laboratory Tests Test 10/25/17 02:25 10/25/17 03:50 10/25/17 07:55 10/25/17 09:20 White Blood Count 17.2 TH/MM3 (4.0-11.0) Platelet Count 466 TH/MM3 (150-450) Neutrophils (%) (Auto) 76.1 % (16.0-70.0) Neutrophils # (Auto) 13.1 TH/MM3 (1.8-7.7) Monocytes # (Auto) 1.2 TH/MM3 (0-0.9) Random Glucose 135 MG/DL (74-106) Chloride Level 110 MEQ/L (98-107) Lactic Acid Level 3.6 mmol/L (0.4-2.0) Arterial Blood pH 7.30 (7.380-7.420) 7.34 (7.380-7.420) Arterial Blood Partial Pressure CO2 50 mmHg (38-42) 46 mmHg (38-42) Arterial Blood Partial Pressure O2 212 mmHg (61-120) 142 mmHg (61-120) Test 10/25/17 13:27 10/25/17 15:59 10/26/17 03:53 White Blood Count 11.2 TH/MM3 (4.0-11.0) Neutrophils (%) (Auto) 81.6 % (16.0-70.0) Neutrophils # (Auto) 9.1 TH/MM3 (1.8-7.7) Random Glucose 156 MG/DL (74-106) Albumin 3.2 GM/DL (3.4-5.0) Aspartate Amino Transf (AST/SGOT) 7 U/L (15-37) Total Bilirubin 0.1 MG/DL (0.2-1.0) Imaging Last Impressions Chest X-Ray 10/25/17 0211 Signed Impressions: Service Date/Time: Wednesday, October 25, 2017 02:29 - CONCLUSION: No acute disease. Boogie Carlos MD PE at Discharge GENERAL: No acute distress HEENT: PERRLA, EOMI. No scleral icterus or conjunctival pallor. No lid lag or facial droop. CARDIOVASCULAR: Regular rate and rhythm. tachycardia. RESPIRATORY: Decreased Breath sounds bilateral, Mild expiratory wheezing. no crackles. GASTROINTESTINAL: Abdomen soft, non-tender, nondistended. BS normal. MUSCULOSKELETAL: Extremities without clubbing, cyanosis, or edema. No obvious deformities. NEUROLOGICAL: Awake, alert and oriented x4. No focal neurologic deficits. Moving both upper and lower extremities spontaneously. Hospital Course This is a pleasant 52 y/o Female with Hypertension, Anxiety disorder, COPD, Tobacco dependence who was admitted today and arrived to the floor one hour before she was Halicat, the reason for admission was severe Hypoxemia, no ABGs in chart were asked, on CXR on admission there's Hyperinflation but no infiltrates, recommended to be admitted on Bronchodilator, Mucolytic, antibiotics, and steroids, but she continue with desaturation at this time on non rebreather mask and 80% of saturation, She smokes one pack of cigarettes daily, Discussed with Doctor Junior Cordero Piano Mechanic for transfer to Intensive Care unit. Expeller Worker Notes: This is a 52yF with tob abuse and COPD who was admitted for acute shortness of breath and COPD exacerbation. of note her mother has the flu and she is currently being treated outpatient for the flu with Tamiflu for a 3day history of worsening shortness of breath, myalgias, fever, chills. today on the floor she had acute onset worsening of her dyspnea and respiratory distress. rapid response was called. patient was emergently moved to ICU and started on BiPAP. when I evaluated the patient, she was in acute respiratory distress, unable to talk in complete sentences. history is very limited due to her distress. she does endorse SOB, denies chest pain. 10/26: clinically improving. very tearful on exam today: wants to leave because she has to move to [place] on Thursday. I explained she was nearly on life-support yesterday and remains very ill with high oxygen requirement and this is medically unwise. ROS otherwise negative. Hospitalist Notes: 10/27: Seen in her bedroom, still with some expiratory wheezing, in the need for Oxygen at this time 4 L/min with 93% oxygen saturation, the patient wants to go home today discussed with Airplane Dispatcher, I think she is not able to be discharged at this time, no nausea, vomit or diarrhea, will perform Walk test tomorrow morning and may be discharged on oxygen at home Assessment and Plan 1. Acute Hypoxemic and Hypercarbic Respiratory Failure, received seven treatments of Bronchodilators, Solu-Medrol 125 mg IV, antibiotics Mucolytics in chart, saturation through blood gas 97% with Non rebreather mask will transfer to Intensive Care Unit. appreciated management by Doctor Sequeira, at this time receiving 4 L/min of oxygen will get walk test tomorrow morning and may be discharged Home. 2. Influenza Pneumonia continue Tamiflu and Levaquin, continue titration of Solu -Medrol to 40 mg TID. may switch to by mouth after Walk test 3. COPD Exacerbation to continue Bronchodilator, Mucolytic Incentive spirometry , Keep oxygen for goal of oxygen saturation >90% 4. Failure of Outpt Tx: s/p Doxycycline, Prednisone, DuoNeb x2 days w/ no improvement, persistent SOB/wheezing and increased work of breathing. Empiric management wtih Levaquin started in ER, has Leukocytosis probable secondary to Steroid management, CXR no acute findings. 5. Tobacco Abuse: Pt counselled. NicoDerm prn if needed. DVT Prophylaxis: Lovenox Social work for d/c planning as needed. Discharge Planning NOT YET READY FOR DISCHARGE THE PATIENT SIGNED AGAINST MEDICAL ADVISE Pt Condition on Discharge: Stable Discharge Disposition: Discharge Home Discharge Time: <= 30 minutes Roland Anderson MD Oct 27, 2017 18:37
[2017-10-27] MEDS ORDERED: methylPREDNISolone SOD SUCC 40 MG/1 ML VIAL IV PUSH SCH (22:00)
== END 2017-10-27 16:45 | disposition left against medical advice (07) | DRG 193 ==
LOC: NEPC 01:54 → NEDA 03:05 → N06B 05:22 → HIMN 08:10
PROVIDERS: ADMIT Hospitalist; ATTEND Hospitalist
PROC: 5A09357 Assistance with Respiratory Ventilation, Less than 24 Consecutive Hours, Continuous Positive Airway Pressure (ICD-10-PCS; principal; 2017-10-25)
DX: J11.00 Influenza due to unidentified influenza virus with unspecified type of pneumonia (principal); J96.21 Acute and chronic respiratory failure with hypoxia; Z99.81 Dependence on supplemental oxygen; J96.22 Acute and chronic respiratory failure with hypercapnia; J44.0 Chronic obstructive pulmonary disease with (acute) lower respiratory infection; J44.1 Chronic obstructive pulmonary disease with (acute) exacerbation; J18.9 Pneumonia, unspecified organism; I10 Essential (primary) hypertension; E05.90 Thyrotoxicosis, unspecified without thyrotoxic crisis or storm; T38.0X5A Adverse effect of glucocorticoids and synthetic analogues, initial encounter; D72.828 Other elevated white blood cell count; F43.10 Post-traumatic stress disorder, unspecified; F17.210 Nicotine dependence, cigarettes, uncomplicated; Z88.0 Allergy status to penicillin; Z88.5 Allergy status to narcotic agent
CPT/HCPCS: 36600; 71045; 80048; 80053; 82805; 83605; 83880; 85025; 85379; 87804; 93005; 94002; 94003; 94640; 94664; 96374; 96375; J1650; J1956; J2060; J2270; J2920; J2930; J3475; J7120